=== PATIENT | male | born 1985 | race Caucasian/White ===

== ENCOUNTER 2018-08-30 07:18 | Inpatient (IN) | payer SELFPAY ==
[2018-08-30] MEDS ORDERED: CEFAZOLIN 2 GM/50 ML BAG ONE (08:02)
[2018-08-30] MEDS ORDERED: Fentanyl 250 MCG/5 ML VIAL ONE (08:06)
[2018-08-30] MEDS ORDERED: Norepinephrine 8 MG/0.9% NS 250 ML ONE ×2 (08:06→08:07)
[2018-08-30] MEDS ORDERED: Midazolam HCl 2 mg/2 ml Vial ONE (08:06)
[2018-08-30] MEDS ORDERED: Heparin 10,000 UNITS/1 ML VIAL 30,000 UNITS in Sodium Chloride 0.9% 1,000 ML FS SCH ×2 (08:15→14:45)
[2018-08-30] MEDS ORDERED: Sodium Bicarb 50 MEQ/50 ML Abboject 8.4% SYRINGE ONE ×3 (08:42→15:08)
[2018-08-30] MEDS ORDERED: Sodium Bicarbonate 2.5 MEQ/5 ML VIAL ONE (08:42)
[2018-08-30] MEDS ORDERED: Insulin Regular 300 UNITS/3 ML VIAL ONE (08:50)
[2018-08-30 09:15] LABS: Hemoglobin 8.1 g/dL (14.0-18.0); Mean Corpuscular HGB CONC 32.2 g/dL (32.0-36.0); Mean Corpuscular Hemoglobin 29.8 pg (27.0-31.0); Mean Corpuscular Volume 92.5 fL (78.0-98.0); Mean Platelet Volume 8.2 fL (7.4-10.4); Platelet Count 101 thou/uL (130-400); Red Blood Cell (RBC) Count 2.71 mill/uL (4.70-6.10); White Blood Cell (WBC) Count 22.7 thou/uL (4.8-10.8)
[2018-08-30 09:20] LABS: INR-International Normal Ratio 2.2; Prothrombin Time 24.9 SEC (12.0-14.7)
[2018-08-30 09:27] LABS: Fibrinogen 93 mg/dL (253-463); PTT 127.7 SEC (22.9-36.1)
[2018-08-30 09:37] LABS: D-Dimer Test Greater than 20.00 *mcg/mL (0.27-0.43)
[2018-08-30 09:40] LABS: Band 28 % (5-11); Eosinophils 2 % (0-10); Lymphocytes 21 % (21-51); MDiff Complete? YES; Metamyelocyte 5 % (0-0); Monocytes 2 % (0-10); Myelocyte 3 % (0-0); Neutrophil 38 % (42-75); PLT Morphology Comment Appears Decreased; Reactive Lymphocytes 1 % (0-10)
[2018-08-30] MEDS ORDERED: Hydrocortisone Sod Succ/PF 100 mg/2 ml Vial IVP SCH (10:15)
[2018-08-30] MEDS ORDERED: Calcium Chloride 1 GM/10 ML Abboject SYRINGE IVP SCH ×2 (10:15→11:00)
[2018-08-30 10:31] LABS: Actual Bicarbonate (HCO3a) 21.7 mEq/L (22-28); Base Excess (BEa) -8.1 mEq/L (-2.0 to +3.0); Calcium, Ionized 1.08 mmol/L (1.12-1.30); Carboxyhemoglobin (COHb) 0.6 gm% (0.0-3.0); Hemoglobin (Hb) 9.3 g/dL (14.0-18.0); Potassium - ABG Lab 2.48 mmol/L (3.70-5.30)
[2018-08-30 10:33] LABS: CO2 Tension 70.8 mmHg (35.0-45.0); O2 Tension (PaO2) 57.3 mmHg (80.0-100.0); pH, Arterial 7.11 (7.35-7.45)
[2018-08-30 10:34] LABS: Puncture Site ALINE
[2018-08-30 10:40] LABS: Actual Bicarbonate (HCO3a) 25.6 mEq/L (22-28); Base Excess (BEa) -2.6 mEq/L (-2.0 to +3.0); Calcium, Ionized 0.81 mmol/L (1.12-1.30); Carboxyhemoglobin (COHb) 1.8 gm% (0.0-3.0); Hemoglobin (Hb) 6.1 g/dL (14.0-18.0); Potassium - ABG Lab 2.71 mmol/L (3.70-5.30)
[2018-08-30] MEDS ORDERED: Calcium Chloride 1 GM/10 ML Abboject SYRINGE ONE ×4 (10:41→15:08)
[2018-08-30] MEDS ORDERED: Potassium Chloride 40 MEQ/100 ML PREMIX BAG ONE (10:42)
[2018-08-30 10:43] LABS: CO2 Tension 70.4 mmHg (35.0-45.0); O2 Tension (PaO2) 56.2 mmHg (80.0-100.0); Puncture Site LRA; pH, Arterial 7.18 (7.35-7.45)
[2018-08-30] MEDS ORDERED: Potassium Chloride 40 MEQ in Premix Bag 1 BAG IVPB SCH (11:00)
[2018-08-30 11:52] LABS: Hemoglobin (Hb) 4.4 g/dL (13.2-17.3)
[2018-08-30 11:56] LABS: Hemoglobin (Hb) 3.7 g/dL (13.2-17.3)
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
[2018-08-30 13:34] LABS: Actual Bicarbonate (HCO3a) 31.3 mEq/L (22-28); Base Excess (BEa) 4.9 mEq/L (-2.0 to +3.0); Calcium, Ionized 1.26 mmol/L (1.12-1.30); Carboxyhemoglobin (COHb) 0.4 gm% (0.0-3.0); Hemoglobin (Hb) 9.9 g/dL (14.0-18.0); Potassium - ABG Lab 2.29 mmol/L (3.70-5.30); pH, Arterial 7.37 (7.35-7.45)
[2018-08-30 13:36] LABS: O2 Tension (PaO2) 57.4 mmHg (80.0-100.0); Puncture Site ALINE
[2018-08-30 13:45] LABS: Hemoglobin 9.7 g/dL (14.0-18.0); Mean Corpuscular HGB CONC 34.4 g/dL (32.0-36.0); Mean Corpuscular Hemoglobin 30.3 pg (27.0-31.0); Mean Platelet Volume 6.8 fL (7.4-10.4); Platelet Count 66 thou/uL (130-400); RBC Distribution Width 12.2 % (11.5-14.5); White Blood Cell (WBC) Count 2.6 thou/uL (4.8-10.8)
[2018-08-30 13:46] LABS: #Lymphocytes 0.4 thou/uL (1.20-3.40); #Monocytes 0.1 thou/uL (0.11-0.59); #Neutrophils 2.1 thou/uL (1.40-6.50); %Basophils 0.9 % (0.0-1.0); %Eosinophils 1.2 % (0.0-10.0); %Neutrophils 78.8 % (42.0-75.0)
[2018-08-30] MEDS ORDERED: Heparin 30,000 units/30 ml VIAL ONE (13:55)
[2018-08-30] MEDS ORDERED: Albumin 25% 25 GM/100 ML BOT ONE (13:55)
[2018-08-30] MEDS ORDERED: Vecuronium 10 MG VIAL ONE (13:55)
[2018-08-30] MEDS ORDERED: Sodium Bicarb 50 MEQ/50 ML VIAL ONE ×2 (13:55→13:56)
[2018-08-30 14:00] LABS: MDiff Complete? YES; PLT Morphology Comment Appears Decreased; Polychromasia SLIGHT = 2-3 cells (100X) (0-2/hpf)
[2018-08-30 14:03] LABS: ALT (SGPT) 143 U/L (8-55); AST (SGOT) 171 U/L (5-34); Albumin 2.7 g/dL (3.5-5.0); Alkaline Phosphatase 54 U/L (40-150); Anion Gap 15 mmol/L (10-20); BUN (Urea Nitrogen) 16 mg/dL (8.9-20.6); Bilirubin, Total 0.6 mg/dL (0.2-1.2); Calc. Creatinine Clearance 87 mL/min (70-130); Calcium 10.7 mg/dL (7.8-10.44); Carbon Dioxide 30 mmol/L (22-29); Chloride 110 mmol/L (98-107); Estimated GFR-MDRD 57; Globulin 1.7 g/dL (2.4-3.5); Glucose 154 mg/dL (70-105); Protein, Total 4.4 g/dL (6.0-8.3); Sodium 153 mmol/L (136-145)
[2018-08-30 14:04] LABS: Lactic Acid 9.6 mmol/L (0.5-2.2)
[2018-08-30 14:09] LABS: Potassium 2.4 mmol/L (3.5-5.1)
[2018-08-30 14:43] LABS: Fibrinogen 262 mg/dL (253-463); INR-International Normal Ratio 1.3; Prothrombin Time 16.5 SEC (12.0-14.7)
[2018-08-30 14:44] LABS: PTT 37.4 SEC (22.9-36.1)
[2018-08-30 14:57] LABS: D-Dimer Test 14.57 *mcg/mL (0.27-0.43)
[2018-08-30] MEDS ORDERED: Adenosine 6 MG/2 ML VIAL ONE (15:05)
[2018-08-30] MEDS ORDERED: Fentanyl 100 MCG/2 ML VIAL ONE (15:07)
[2018-08-30] MEDS ORDERED: EPINEPHrine 1 MG/10 ML Abboject SYRINGE ONE (15:08)
[2018-08-30 15:11] LABS: FSP-Qualitative ABNORMAL (Normal)
[2018-08-30] MEDS ORDERED: Fentanyl 100 MCG/2 ML VIAL SLOW IVP SCH (15:12)
[2018-08-30 15:13] LABS: Platelet Count 96 thou/uL (130-400)
[2018-08-30 15:16] LABS: FSP-Semiquantitative >=160 & <320 mcg/mL (Less than 5)
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
[2018-08-30] MEDS: Potassium Chloride 40 MEQ in Premix Bag 1 BAG IVPB SCH ×2 (16:18→18:28)
[2018-08-30] MEDS ORDERED: Propofol BOLUS 1,000 MG/100 ML VIAL IV PRN (16:44)
[2018-08-30] MEDS ORDERED: Fentanyl BOLUS 250 ML IVPB PRN (16:44)
[2018-08-30] MEDS ORDERED: Morphine 2 MG/ML SYRINGE SLOW IVP PRN (16:44)
[2018-08-30] MEDS ORDERED: DISCONTINUE PREVIOUS NARCOTIC PAIN MEDICATIONS AND BENZODIAZEPINES FS SCH (16:44)
[2018-08-30 17:11] LABS: Actual Bicarbonate (HCO3a) 26.5 mEq/L (22-28); Base Excess (BEa) 1.7 mEq/L (-2.0 to +3.0); CO2 Tension 42.5 mmHg (35.0-45.0); Calcium, Ionized 1.32 mmol/L (1.12-1.30); Carboxyhemoglobin (COHb) 0.3 gm% (0.0-3.0); Hemoglobin (Hb) 9.5 g/dL (14.0-18.0); O2 Tension (PaO2) 193.8 mmHg (80.0-100.0); pH, Arterial 7.41 (7.35-7.45)
[2018-08-30 17:13] LABS: ALV-art Gradient 466.075 (0-20); Puncture Site LINE
[2018-08-30] MEDS ORDERED: SYSTANE 3.5 GM TUBE EA EYE PRN (17:29)
[2018-08-30] MEDS ORDERED: Dextrose 5% in Water 1,000 ML IV SCH (17:30)
[2018-08-30] MEDS: Lorazepam 2 MG/ML VIAL SLOW IVP PRN ×3 (17:57→20:30)
[2018-08-30] MEDS ORDERED: Dextrose 50% Abboject 50 ML SYRINGE ONE ×4 (18:02→19:53)
[2018-08-30] MEDS: Piperacillin/Tazobactam 3.375 GM in Sodium Chloride 0.9% 100 ML IVPB SCH ×2 (18:29→23:43)
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
[2018-08-30] MEDS: fentaNYL Citrate/PF 2,000 MCG in Sodium Chloride 0.9% 60 ML IV SCH (19:38)
[2018-08-30] MEDS: Famotidine/PF 20 mg/2ml Vial SLOW IVP SCH (21:59)
[2018-08-30] MEDS: Vancomycin HCl 1.5 GM in Sodium Chloride 0.9% 250 ML 300 ML IVPB SCH (21:59)
[2018-08-30] MEDS ORDERED: Dextrose 50% Abboject 50 ML SYRINGE SLOW IVP PRN (23:22)
[2018-08-30] MEDS ORDERED: Dextrose 5% in Water 1,000 ML IV PRN (23:22)
[2018-08-30] MEDS ORDERED: hydrALAZINE 20 MG/ML VIAL SLOW IVP PRN (23:22)
[2018-08-30] MEDS ORDERED: Fluconazole In NaCl,Iso-Osm 400 MG in Premix Bag 1 BAG IVPB SCH (23:30)
[2018-08-30] MEDS ORDERED: Sodium Chloride 0.9% 1,000 ML IV SCH (23:30)
[2018-08-30] MEDS: Dextrose 10% in Water 1,000 ML IV SCH (23:40)
[2018-08-30] MEDS: Acetaminophen 1,000 MG in Premix Bag 1 BAG IVPB SCH (23:43)
[2018-08-30] MEDS: Hydrocortisone Sod Succ/PF 100 mg/2 ml Vial IVP SCH (23:44)
[2018-08-31 00:19] LABS: Fibrinogen 297 mg/dL (253-463); INR-International Normal Ratio 1.5; PTT 33.2 SEC (22.9-36.1)
[2018-08-31] MEDS: Lorazepam 2 MG/ML VIAL SLOW IVP PRN (00:20)
[2018-08-31 00:27] LABS: D-Dimer Test 17.62 *mcg/mL (0.27-0.43)
[2018-08-31] MEDS: Propofol 1,000 MG/100 ML VIAL IV PRN ×3 (00:28→21:12)
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
[2018-08-31 01:03] LABS: FSP-Qualitative ABNORMAL (Normal); FSP-Semiquantitative >=80 & <160 mcg/mL (Less than 5)
[2018-08-31 01:06] LABS: Platelet Count 110 thou/uL (130-400)
[2018-08-31 01:31] LABS: Band 33 % (5-11); Hemoglobin 9.5 g/dL (14.0-18.0); Hypochromia SLIGHT = 6-15 cells (100X) (0-5/hpf); Lymphocytes 24 % (21-51); MDiff Complete? YES; Mean Corpuscular HGB CONC 35.1 g/dL (32.0-36.0); Mean Corpuscular Hemoglobin 30.4 pg (27.0-31.0); Mean Corpuscular Volume 86.9 fL (78.0-98.0); Mean Platelet Volume 8.9 fL (7.4-10.4); Monocytes 5 % (0-10); Neutrophil 35 % (42-75); PLT Morphology Comment Appears Decreased; Phosphorus 3.4 mg/dL (2.3-4.7); Platelet Count 111 thou/uL (130-400); Polychromasia SLIGHT = 2-3 cells (100X) (0-2/hpf); Reactive Lymphocytes 3 % (0-10); Red Blood Cell (RBC) Count 3.12 mill/uL (4.70-6.10); White Blood Cell (WBC) Count 9.7 thou/uL (4.8-10.8)
[2018-08-31 01:33] LABS: Lactic Acid 5.2 mmol/L (0.5-2.2)
[2018-08-31 01:35] LABS: ALT (SGPT) 152 U/L (8-55); AST (SGOT) 528 U/L (5-34); Alkaline Phosphatase 39 U/L (40-150); Anion Gap 17 mmol/L (10-20); BUN (Urea Nitrogen) 23 mg/dL (8.9-20.6); Bilirubin, Total 1.1 mg/dL (0.2-1.2); Calc. Creatinine Clearance 54 mL/min (70-130); Calcium 9.8 mg/dL (7.8-10.44); Carbon Dioxide 26 mmol/L (22-29); Chloride 112 mmol/L (98-107); Estimated GFR-MDRD 33; Globulin 2.1 g/dL (2.4-3.5); Glucose 104 mg/dL (70-105); Potassium 4.7 mmol/L (3.5-5.1); Protein, Total 5.1 g/dL (6.0-8.3); Sodium 150 mmol/L (136-145)
--- NOTE | 2018-08-31 01:49 | OP ---
DATE OF PROCEDURE: 08/30/2018 PREOPERATIVE DIAGNOSIS: Hemoperitoneum. POSTOPERATIVE DIAGNOSES: Injury, open, liver; injury, open, greater curve of stomach as well as projectile injury to spleen. PROCEDURES PERFORMED: 1. Exploratory laparotomy. 2. Hepatorrhaphy. 3. Repair of gastric projectile injury. 4. Splenectomy. 5. Abdominal washout. 6. Placement of ABThera. ANESTHESIA: General. ESTIMATED BLOOD LOSS: Massive in terms of blood on presentation. No significant blood loss after control of old blood in abdomen. DESCRIPTION OF PROCEDURE: The patient was taken from the ICU to the OR in critical condition. His abdomen was shaved, prepped, and draped. A midline incision was made from xiphoid to pubis. Upon entering the peritoneum, was performed. Anesthesia was providing ongoing resuscitation utilizing the massive transfusion protocol and the patient was on Levophed throughout the procedure. Removal of the packs in the lower abdomen revealed no obvious injury. There were obvious gastric contents in the upper abdomen upon entrance. The falciform was taken down using the Impact LigaSure. The patient was found to have a psykkwa-ggt-pniyghq injury to the left lobe of liver. The patient was found to have an open injury to the greater curve of stomach. The patient was found to have a projectile injury to upper spleen. The spleen was grasped around its hilum and brought up into the field. A clamp was placed across the hilum and a silk suture was used to ligate the hilum. There was no bleeding then in the left upper quadrant. The projectile entered the retroperitoneum behind the spleen, but this was packed off with no significant ongoing bleeding. The LigaSure was used to control bleeding on the edges of the liver laceration, but this was not much. The lesser sac was opened using LigaSure, revealed no obvious injury to the posterior wall of the stomach. There was an open injury to the greater curve. This was grasped using [place] and laparoscopic CLINT stapler was used to close it. Small bowel was run from ligament of Treitz to ileocecal valve without injury. The colon was marked without injury. No injury to the pancreas. Surgicel was packed in the posterior retroperitoneal tunnel, but there was really no significant ongoing bleeding in this area. All instrument counts, needle counts, and lap counts were correct. There was no obvious ongoing extravasation or injury in the abdomen. Five packs were left in the upper abdomen. The ABThera was placed. The patient was taken back to the ICU for continued resuscitation. Job ID: [id number]
[2018-08-31 01:55] LABS: Actual Bicarbonate (HCO3a) 26.9 mEq/L (22-28); Base Excess (BEa) 1.3 mEq/L (-2.0 to +3.0); Calcium, Ionized 1.19 mmol/L (1.12-1.30); Carboxyhemoglobin (COHb) 0.9 gm% (0.0-3.0); Hemoglobin (Hb) 9.1 g/dL (14.0-18.0); O2 Tension (PaO2) 43.2 mmHg (80.0-100.0); Potassium - ABG Lab 4.09 mmol/L (3.70-5.30); pH, Arterial 7.37 (7.35-7.45)
[2018-08-31 01:56] LABS: Puncture Site ALINE
[2018-08-31] MEDS: Norepinephrine 8 MG/250 ML BAG IVPB PRN ×3 (03:04→15:18)
--- NOTE | 2018-08-31 03:56 | OP ---
DATE OF PROCEDURE: 08/30/2018 SERVICE: Pulmonary Medicine. PROCEDURE PERFORMED: Ultrasound-guided paracentesis. The consent was implied secondary to emergent situation. PREOPERATIVE DIAGNOSES: 1. Hemorrhagic shock. 2. Abdominal swelling. POSTPROCEDURE DIAGNOSES: 1. Hemorrhagic shock. 2. Abdominal swelling. DESCRIPTION OF PROCEDURE: Time-out was performed by the procedure team. The patient was positively identified. Procedure site was marked. In the supine position, the right lower quadrant was examined using ultrasound probe. A large pocket of fluid was easily identified. A small incision was made with a #11 blade scalpel. A paracentesis catheter was inserted in the exact same location with evacuation of bloody fluid. The catheter was hooked up to a drainage bag by gravity. It was left hooked up. Because the tap was diagnostic for blood in the abdomen, preparations were made to transition the patient to the operating room for a laparotomy. ESTIMATED BLOOD LOSS: Less than 2 mL from this procedure. COMPLICATIONS: None. Job ID: [id number]
[2018-08-31] MEDS: Acetaminophen 1,000 MG in Premix Bag 1 BAG IVPB SCH ×3 (05:23→18:20)
[2018-08-31] MEDS: Hydrocortisone Sod Succ/PF 100 mg/2 ml Vial IVP SCH ×3 (05:23→18:20)
[2018-08-31] MEDS: Piperacillin/Tazobactam 3.375 GM in Sodium Chloride 0.9% 100 ML IVPB SCH ×3 (05:24→18:20)
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
[2018-08-31] MEDS ORDERED: Lactated Ringer's 1,000 ML IV SCH ×2 (06:15→09:07)
[2018-08-31 06:40] LABS: Actual Bicarbonate (HCO3a) 26.4 mEq/L (22-28); Base Excess (BEa) 0.5 mEq/L (-2.0 to +3.0); CO2 Tension 49.4 mmHg (35.0-45.0); Carboxyhemoglobin (COHb) 1.1 gm% (0.0-3.0); Hemoglobin (Hb) 8.4 g/dL (14.0-18.0); Potassium - ABG Lab 5.37 mmol/L (3.70-5.30); pH, Arterial 7.35 (7.35-7.45)
[2018-08-31 06:41] LABS: O2 Tension (PaO2) 54.6 mmHg (80.0-100.0)
[2018-08-31 06:42] LABS: Puncture Site ALINE
[2018-08-31 07:56] LABS: Actual Bicarbonate (HCO3a) 8.7 mEq/L (22-28); Analyzer IN Cardio OR; Base Excess (BEa) -27.7 mEq/L (-2.0 to +3.0); Calcium, Ionized 0.98 mmol/L (1.12-1.30); Carboxyhemoglobin (COHb) 0.3 gm% (0.0-3.0); Hemoglobin (Hb) 9.8 g/dL (14.0-18.0); O2 Tension (PaO2) 116.3 mmHg (80.0-100.0); Potassium - ABG Lab 3.38 mmol/L (3.70-5.30)
[2018-08-31 07:57] LABS: Actual Bicarbonate (HCO3a) 16.6 mEq/L (22-28); Analyzer IN Cardio OR; Base Excess (BEa) -9.9 mEq/L (-2.0 to +3.0); CO2 Tension 38.8 mmHg (35.0-45.0); Calcium, Ionized 0.91 mmol/L (1.12-1.30); Carboxyhemoglobin (COHb) 0.5 gm% (0.0-3.0); Hemoglobin (Hb) 7.8 g/dL (14.0-18.0); O2 Tension (PaO2) 142.3 mmHg (80.0-100.0); Potassium - ABG Lab 4.05 mmol/L (3.70-5.30)
[2018-08-31 07:57] LABS: Actual Bicarbonate (HCO3a) 15.1 mEq/L (22-28); Analyzer IN Cardio OR; Base Excess (BEa) -14.1 mEq/L (-2.0 to +3.0); CO2 Tension 50.9 mmHg (35.0-45.0); Calcium, Ionized 0.83 mmol/L (1.12-1.30); Carboxyhemoglobin (COHb) 0.5 gm% (0.0-3.0); Hemoglobin (Hb) 8.8 g/dL (14.0-18.0); O2 Tension (PaO2) 145.6 mmHg (80.0-100.0); Potassium - ABG Lab 4.19 mmol/L (3.70-5.30)
[2018-08-31 08:03] LABS: Actual Bicarbonate (HCO3a) 20.6 mEq/L (22-28); Analyzer IN Cardio OR; Base Excess (BEa) -5.2 mEq/L (-2.0 to +3.0); CO2 Tension 42.3 mmHg (35.0-45.0); Calcium, Ionized 0.91 mmol/L (1.12-1.30); Carboxyhemoglobin (COHb) 1.3 gm% (0.0-3.0); Hemoglobin (Hb) 5.9 g/dL (14.0-18.0); O2 Tension (PaO2) 68.1 mmHg (80.0-100.0); Potassium - ABG Lab 2.09 mmol/L (3.70-5.30); pH, Arterial 7.31 (7.35-7.45)
[2018-08-31 08:03] LABS: Actual Bicarbonate (HCO3v) 23 mEq/L (22-28); Analyzer IN Cardio OR; Calcium, Ionized 0.88 mmol/L (1.16-1.32); Chloride (ABG LAB) 115 mmol/L (98-106); Hemoglobin (Hb) 6.5 g/dL (13.2-17.3); Potassium - ABG Lab 2.05 mmol/L (3.70-5.30); Sodium 149.9 mmol/L (133-146); pH (venous) 7.29 (7.32-7.43)
[2018-08-31 08:10] LABS: Puncture Site ALINE
[2018-08-31 08:13] LABS: CO2 Tension 78.6 mmHg (35.0-45.0); pH, Arterial 6.66 (7.35-7.45)
[2018-08-31 08:14] LABS: Puncture Site ALINE
[2018-08-31 08:15] LABS: Puncture Site ALINE; pH, Arterial 7.09 (7.35-7.45)
[2018-08-31 08:16] LABS: Puncture Site ALINE; pH, Arterial 7.25 (7.35-7.45)
[2018-08-31 08:19] LABS: Actual Bicarbonate (HCO3a) 20.3 mEq/L (22-28); Analyzer IN Cardio OR; Base Excess (BEa) -4.3 mEq/L (-2.0 to +3.0); CO2 Tension 35.7 mmHg (35.0-45.0); Calcium, Ionized 1.06 mmol/L (1.12-1.30); Carboxyhemoglobin (COHb) 0.2 gm% (0.0-3.0); Hemoglobin (Hb) 12.4 g/dL (14.0-18.0); O2 Tension (PaO2) 340.6 mmHg (80.0-100.0); Potassium - ABG Lab 3.52 mmol/L (3.70-5.30); pH, Arterial 7.37 (7.35-7.45)
[2018-08-31 08:20] LABS: Puncture Site ALINE
[2018-08-31] MEDS ORDERED: Magnesium Sulfate 3 GM in Sodium Chloride 0.9% 100 ML IVPB SCH (08:45)
[2018-08-31] MEDS ORDERED: Calcium Gluconate 4.6 MEQ in Sodium Chloride 0.9% 100 ML IVPB SCH (09:04)
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
[2018-08-31 09:47] LABS: Vancomycin, Random 20.5 ug/mL (See Comment)
[2018-08-31] MEDS ORDERED: Budesonide 0.5 MG/2 ML NEB ONE (10:26)
[2018-08-31] MEDS: Famotidine/PF 20 mg/2ml Vial SLOW IVP SCH ×2 (10:28→21:11)
[2018-08-31] MEDS: Vancomycin HCl 1.5 GM in Sodium Chloride 0.9% 250 ML 300 ML IVPB SCH (10:28)
[2018-08-31] MEDS: Fluconazole In NaCl,Iso-Osm 400 MG in Premix Bag 1 BAG IVPB SCH (10:29)
[2018-08-31] MEDS: fentaNYL Citrate/PF 2,000 MCG in Sodium Chloride 0.9% 60 ML IV SCH (10:38)
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
[2018-08-31] MEDS: Dextrose 10% in Water 1,000 ML IV SCH ×2 (13:33→21:12)
[2018-08-31] MEDS: Norepinephrine 16 MG in Dextrose 5% in Water 234 ML IVPB PRN (21:12)
[2018-09-01] MEDS: Hydrocortisone Sod Succ/PF 100 mg/2 ml Vial IVP SCH ×5 (00:07→23:23)
[2018-09-01] MEDS: Acetaminophen 1,000 MG in Premix Bag 1 BAG IVPB SCH (00:07)
[2018-09-01] MEDS: Piperacillin/Tazobactam 3.375 GM in Sodium Chloride 0.9% 100 ML IVPB SCH ×5 (00:07→23:23)
[2018-09-01] MEDS ORDERED: Norepinephrine 8 MG/0.9% NS 0 ML ONE (03:28)
[2018-09-01] MEDS: Propofol 1,000 MG/100 ML VIAL IV PRN ×2 (05:09→19:36)
[2018-09-01 05:34] LABS: Band 39 % (5-11); Hemoglobin 8.1 g/dL (14.0-18.0); Lymphocytes 7 % (21-51); MDiff Complete? YES; Mean Corpuscular HGB CONC 34.4 g/dL (32.0-36.0); Mean Corpuscular Hemoglobin 30.4 pg (27.0-31.0); Mean Corpuscular Volume 88.4 fL (78.0-98.0); Monocytes 5 % (0-10); Neutrophil 49 % (42-75); PLT Morphology Comment Appears Decreased; Platelet Count 97 thou/uL (130-400); RBC Distribution Width 13.4 % (11.5-14.5); Red Blood Cell (RBC) Count 2.66 mill/uL (4.70-6.10); White Blood Cell (WBC) Count 16.5 thou/uL (4.8-10.8)
[2018-09-01 05:41] LABS: Phosphorus 4.3 mg/dL (2.3-4.7)
[2018-09-01 05:51] LABS: ALT (SGPT) 268 U/L (8-55); AST (SGOT) 469 U/L (5-34); Albumin 3.1 g/dL (3.5-5.0); Alkaline Phosphatase 38 U/L (40-150); Anion Gap 16 mmol/L (10-20); BUN (Urea Nitrogen) 25 mg/dL (8.9-20.6); Bilirubin, Total 2.2 mg/dL (0.2-1.2); Calc. Creatinine Clearance 44 mL/min (70-130); Calcium 8.1 mg/dL (7.8-10.44); Carbon Dioxide 24 mmol/L (22-29); Chloride 110 mmol/L (98-107); Estimated GFR-MDRD 26; Globulin 2.2 g/dL (2.4-3.5); Glucose 166 mg/dL (70-105); Magnesium 1.6 mg/dL (1.6-2.6); Potassium 3.9 mmol/L (3.5-5.1); Protein, Total 5.3 g/dL (6.0-8.3); Sodium 146 mmol/L (136-145)
[2018-09-01] MEDS: Famotidine/PF 20 mg/2ml Vial SLOW IVP SCH ×2 (08:39→20:39)
[2018-09-01] MEDS ORDERED: Magnesium Sulfate 4 GM in Sodium Chloride 0.9% 250 ML 250 ML IVPB SCH (09:00)
[2018-09-01 09:11] LABS: Actual Bicarbonate (HCO3a) 25.1 mEq/L (22-28); Base Excess (BEa) -0.5 mEq/L (-2.0 to +3.0); CO2 Tension 45.7 mmHg (35.0-45.0); Calcium, Ionized 1.04 mmol/L (1.12-1.30); Carboxyhemoglobin (COHb) 0.5 gm% (0.0-3.0); Hemoglobin (Hb) 8.3 g/dL (14.0-18.0); O2 Tension (PaO2) 80.3 mmHg (80.0-100.0); Potassium - ABG Lab 4.08 mmol/L (3.70-5.30); pH, Arterial 7.36 (7.35-7.45)
[2018-09-01 09:12] LABS: ALV-art Gradient 197.685 (0-20); Peep/CPAP 7.5 cmH2O; Puncture Site ALINE
--- NOTE | 2018-09-01 09:12 | RAD ---
PORTABLE AP CHEST: Date: 09/01/18 HISTORY: On ventilator. Follow-up evaluation. COMPARISON: 08/31/18. FINDINGS: Endotracheal tube and nasogastric tubes remain in place and unchanged in position. Two left-sided tho racostomy tubes with single right-sided thoracostomy tube also remain in place. Again noted is increa sed opacity at the left lung base, which may be related to contusion, pneumonia, or atelectasis. Pleu ral fluid at the left lung base could not be entirely excluded. Skin clips again overlie the lower le ft chest. The cardiac silhouette is enlarged. Pulmonary vasculature is within normal limits. Linear d ensities in the left upper lung zone are likely related to atelectasis. However, there does appear to be mild improvement in aeration in the left upper lung zone compared to prior study. However, chest is overall stable compared to the prior exam. IMPRESSION: Overall stable chest with suggestion of mild improvement in aeration in the left upper lung zone. POS: [facility]
[2018-09-01] MEDS: Vancomycin HCl 1.5 GM in Sodium Chloride 0.9% 250 ML 300 ML IVPB SCH (09:22)
[2018-09-01] MEDS: Fluconazole In NaCl,Iso-Osm 400 MG in Premix Bag 1 BAG IVPB SCH (09:47)
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
[2018-09-01] MEDS ORDERED: Midazolam HCl 2 mg/2 ml Vial IVP SCH (13:30)
[2018-09-01] MEDS: Norepinephrine 16 MG in Dextrose 5% in Water 234 ML IVPB PRN (13:50)
[2018-09-01] MEDS: fentaNYL Citrate/PF 2,000 MCG in Sodium Chloride 0.9% 60 ML IV SCH (14:27)
[2018-09-01] MEDS ORDERED: Sodium Chloride 0.9% 20 ML ONE (16:03)
--- NOTE | 2018-09-01 18:51 | RAD ---
PORTABLE SUPINE CHEST: 09/01/18 HISTORY: Post line placement. COMPARISON: Earlier exam of the same day. A left sided subclavian line has now been placed. The catheter tip overlying the superior vena cava. I do not appreciate a pneumothorax on this supine film. No other interval change. IMPRESSION: Placement of left sided subclavian line. Catheter tip overlying the superior vena cava. POS: [facility]
[2018-09-01] MEDS: Dextrose 10% in Water 1,000 ML IV SCH (19:58)
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
[2018-09-02 04:51] LABS: ALT (SGPT) 281 U/L (8-55); AST (SGOT) 379 U/L (5-34); Alkaline Phosphatase 52 U/L (40-150); Anion Gap 12 mmol/L (10-20); BUN (Urea Nitrogen) 25 mg/dL (8.9-20.6); Bilirubin, Total 1.3 mg/dL (0.2-1.2); Calc. Creatinine Clearance 65 mL/min (70-130); Calcium 8.3 mg/dL (7.8-10.44); Carbon Dioxide 26 mmol/L (22-29); Chloride 112 mmol/L (98-107); Estimated GFR-MDRD 37; Globulin 2.6 g/dL (2.4-3.5); Glucose 135 mg/dL (70-105); Magnesium 2.1 mg/dL (1.6-2.6); Potassium 4.4 mmol/L (3.5-5.1); Protein, Total 5.6 g/dL (6.0-8.3); Sodium 146 mmol/L (136-145)
[2018-09-02 05:05] LABS: Band 33 % (5-11); Dohle Bodies SLIGHT; Eosinophils 1 % (0-10); Hemoglobin 7.9 g/dL (14.0-18.0); Lymphocytes 6 % (21-51); MDiff Complete? YES; Mean Corpuscular HGB CONC 34.2 g/dL (32.0-36.0); Mean Corpuscular Hemoglobin 31.1 pg (27.0-31.0); Mean Corpuscular Volume 90.9 fL (78.0-98.0); Monocytes 3 % (0-10); Neutrophil 57 % (42-75); PLT Morphology Comment Appears Decreased; Platelet Count 110 thou/uL (130-400); RBC Distribution Width 13.6 % (11.5-14.5); Red Blood Cell (RBC) Count 2.54 mill/uL (4.70-6.10); Toxic Granulation SLIGHT; White Blood Cell (WBC) Count 17.3 thou/uL (4.8-10.8)
[2018-09-02] MEDS: Hydrocortisone Sod Succ/PF 100 mg/2 ml Vial IVP SCH ×3 (05:24→17:32)
[2018-09-02] MEDS: Piperacillin/Tazobactam 3.375 GM in Sodium Chloride 0.9% 100 ML IVPB SCH ×3 (05:24→17:33)
[2018-09-02] MEDS: Propofol 1,000 MG/100 ML VIAL IV PRN ×2 (05:44→08:23)
[2018-09-02] MEDS: Fluconazole In NaCl,Iso-Osm 400 MG in Premix Bag 1 BAG IVPB SCH (08:16)
[2018-09-02] MEDS: Famotidine/PF 20 mg/2ml Vial SLOW IVP SCH ×2 (08:16→22:09)
[2018-09-02 08:44] LABS: Vancomycin, Trough 12.3 ug/mL
[2018-09-02] MEDS ORDERED: Acetaminophen 650 MG in Premix Bag 1 BAG IVPB PRN ×2 (09:02→09:03)
[2018-09-02] MEDS: Dextrose 5% in Water 1,000 ML IV SCH ×2 (09:52→22:14)
[2018-09-02] MEDS ORDERED: Budesonide 0.5 MG/2 ML NEB ONE (09:57)
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
[2018-09-02] MEDS: Vancomycin HCl 1.5 GM in Sodium Chloride 0.9% 250 ML 300 ML IVPB SCH (10:35)
[2018-09-02] MEDS: fentaNYL Citrate/PF 2,000 MCG in Sodium Chloride 0.9% 60 ML IV SCH (18:13)
[2018-09-02] MEDS: Vancomycin HCl 1 GM in Premix Bag 1 BAG IVPB SCH (22:09)
[2018-09-03] MEDS: Hydrocortisone Sod Succ/PF 100 mg/2 ml Vial IVP SCH ×5 (00:33→23:58)
[2018-09-03] MEDS: Propofol 1,000 MG/100 ML VIAL IV PRN ×2 (00:33→17:19)
[2018-09-03] MEDS: Piperacillin/Tazobactam 3.375 GM in Sodium Chloride 0.9% 100 ML IVPB SCH ×5 (00:33→23:57)
[2018-09-03 04:41] LABS: Anion Gap 10 mmol/L (10-20); BUN (Urea Nitrogen) 23 mg/dL (8.9-20.6); Calc. Creatinine Clearance 87 mL/min (70-130); Calcium 8.2 mg/dL (7.8-10.44); Carbon Dioxide 28 mmol/L (22-29); Chloride 112 mmol/L (98-107); Estimated GFR-MDRD 55; Glucose 128 mg/dL (70-105); Potassium 3.8 mmol/L (3.5-5.1); Sodium 146 mmol/L (136-145)
[2018-09-03 05:02] LABS: Band 32 % (5-11); Eosinophils 1 % (0-10); Hemoglobin 7.5 g/dL (14.0-18.0); Lymphocytes 7 % (21-51); MDiff Complete? YES; Mean Corpuscular HGB CONC 33.4 g/dL (32.0-36.0); Mean Corpuscular Hemoglobin 30.7 pg (27.0-31.0); Mean Platelet Volume 9.6 fL (7.4-10.4); Monocytes 5 % (0-10); Neutrophil 55 % (42-75); Platelet Count 135 thou/uL (130-400); RBC Distribution Width 13.4 % (11.5-14.5); Red Blood Cell (RBC) Count 2.44 mill/uL (4.70-6.10); White Blood Cell (WBC) Count 23.5 thou/uL (4.8-10.8)
[2018-09-03] MEDS: Famotidine/PF 20 mg/2ml Vial SLOW IVP SCH ×2 (08:48→21:20)
[2018-09-03] MEDS: Vancomycin HCl 1 GM in Premix Bag 1 BAG IVPB SCH ×2 (08:48→21:22)
[2018-09-03] MEDS: Fluconazole In NaCl,Iso-Osm 400 MG in Premix Bag 1 BAG IVPB SCH (08:48)
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
[2018-09-03] MEDS: Dextrose 5% in Water 1,000 ML IV SCH (10:59)
[2018-09-03] MEDS ORDERED: PHENYLEPHRINE-NS 100 MCG/ML 10 ML SYRINGE ONE (12:56)
[2018-09-03] MEDS ORDERED: ePHEDrine/0.9% NaCl/PF SYRINGE 50 mg/10 ml ONE (12:56)
--- NOTE | 2018-09-03 13:06 | PRG ---
DATE OF SERVICE: 09/03/2018 SERVICE: Pulmonary Medicine. INTERVAL HISTORY: The patient is doing really well from respiratory standpoint. We have been able to wean his oxygen down a little bit further. He did not have any events overnight and actually came off his Levophed. He denies any chest pain, fevers, chills, nausea, or vomiting. Otherwise, there were no other significant events. PHYSICAL EXAMINATION: VITAL SIGNS: Currently, afebrile. He did have a T-max of 100.1 overnight. Pulse 95, blood pressure 130/64, respirations 10, and saturation 93% on 27% FiO2. GENERAL: The patient is intubated and sedated. HEENT: Normocephalic and atraumatic. Sclerae are white. Conjunctivae are pink. Oral mucosa is moist without lesions. LUNGS: Decent air entry. There is no prolonged expiratory phase. Dependent crackles are minimal. HEART: Normal rate and regular. ABDOMEN: Soft, nontender, and nondistended. Bowel sounds are positive. MUSCULOSKELETAL: No cyanosis or clubbing. There is no pitting in the bilateral lower extremities. NEUROLOGIC: Grossly nonfocal. LABORATORY FINDINGS: WBC 23.5, hemoglobin 7.5, platelets 135,000 and rebounding. Band count is stable at 32%. Creatinine 1.48 and downtrending. BUN 23. Chloride 112, sodium 146, both of which are stable. IMAGING STUDIES: Chest x-ray demonstrates stable thoracostomy tubes x2 on the left. There is a stable thoracostomy tube on the right. A small effusion on the left is noted. Left-sided subclavian central venous catheter is in good position. There is an endotracheal tube roughly 4 cm above the level of the broderick. Scattered infiltrates are present. ASSESSMENT: 1. Acute hypoxic respiratory failure, continuing to improve. 2. Pulseless electrical activity, status post return of circulation. 3. Hemorrhagic shock, resolved. 4. Acute blood loss anemia. 5. Metabolic encephalopathy. 6. Anoxic brain injury, possible. DISCUSSION AND PLAN: The patient may go down for another washout today. He will possibly be closed. If that occurs, we will be able to facilitate weaning from the ventilator and give the patient a good sedation holiday to see whether or not he has any good neurologic function left. I will start a dose of Lasix on a daily basis now that he is off pressors. We will continue our free water through time. CRITICAL CARE TIME: 30 minutes. Job ID: [id number]
[2018-09-03] MEDS ORDERED: Fentanyl 250 MCG/5 ML VIAL ONE (15:19)
[2018-09-03] MEDS ORDERED: Phenylephrine HCL 10 MG/ML VIAL ONE (15:20)
[2018-09-03] MEDS ORDERED: DOPamine 400 MG/D5W 250 ML 0 ML ONE (15:20)
[2018-09-03] MEDS ORDERED: Midazolam HCl 5 mg/5 ml Vial ONE (15:26)
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
[2018-09-03] MEDS: fentaNYL Citrate/PF 2,000 MCG in Sodium Chloride 0.9% 60 ML IV SCH (23:44)
[2018-09-04] MEDS: Piperacillin/Tazobactam 3.375 GM in Sodium Chloride 0.9% 100 ML IVPB SCH ×3 (04:53→17:30)
[2018-09-04] MEDS: Hydrocortisone Sod Succ/PF 100 mg/2 ml Vial IVP SCH ×2 (04:54→11:44)
[2018-09-04] MEDS: Dextrose 5% in Water 1,000 ML IV SCH ×2 (05:31→16:08)
[2018-09-04 05:37] LABS: Anion Gap 11 mmol/L (10-20); BUN (Urea Nitrogen) 23 mg/dL (8.9-20.6); Calc. Creatinine Clearance 84 mL/min (70-130); Calcium 8.1 mg/dL (7.8-10.44); Carbon Dioxide 26 mmol/L (22-29); Chloride 112 mmol/L (98-107); Estimated GFR-MDRD 54; Glucose 121 mg/dL (70-105); Sodium 146 mmol/L (136-145)
[2018-09-04] MEDS ORDERED: Furosemide 20 MG/2 ML VIAL SLOW IVP SCH (06:00)
[2018-09-04 06:28] LABS: Band 15 % (5-11); Eosinophils 2 % (0-10); Hemoglobin 7.6 g/dL (14.0-18.0); Large Platelets SLIGHT; Lymphocytes 8 % (21-51); MDiff Complete? YES; Mean Corpuscular HGB CONC 33.2 g/dL (32.0-36.0); Mean Corpuscular Hemoglobin 30.3 pg (27.0-31.0); Mean Corpuscular Volume 91.4 fL (78.0-98.0); Mean Platelet Volume 9.5 fL (7.4-10.4); Monocytes 10 % (0-10); Myelocyte 3 % (0-0); Neutrophil 62 % (42-75); Nucleated RBC 3 % (0); PLT Morphology Comment Appears Adequate; Platelet Count 189 thou/uL (130-400); Polychromasia SLIGHT = 2-3 cells (100X) (0-2/hpf); RBC Distribution Width 13.3 % (11.5-14.5); White Blood Cell (WBC) Count 23.3 thou/uL (4.8-10.8)
[2018-09-04] MEDS: Famotidine/PF 20 mg/2ml Vial SLOW IVP SCH ×2 (08:34→21:35)
[2018-09-04] MEDS: Fluconazole In NaCl,Iso-Osm 400 MG in Premix Bag 1 BAG IVPB SCH (08:35)
[2018-09-04 08:46] LABS: Vancomycin, Random 13.8 ug/mL (See Comment)
[2018-09-04] MEDS ORDERED: Potassium Phosphate 30 MMOL in Sodium Chloride 0.9% 250 ML 250 ML IVPB SCH (09:00)
[2018-09-04] MEDS: Vancomycin HCl 1 GM in Premix Bag 1 BAG IVPB SCH (09:05)
[2018-09-04] MEDS ORDERED: Dextrose 5% in Water 1,000 ML IV SCH (11:05)
[2018-09-04] MEDS ORDERED: Potassium Chloride 40 MEQ in Premix Bag 1 BAG IVPB SCH (11:15)
--- NOTE | 2018-09-04 11:37 | PRG ---
DATE OF SERVICE: SUBJECTIVE: Mr. Noguera is doing well today. He is in ICU on the ventilator. OBJECTIVE: VITAL SIGNS: Heart rate 105 to 112, blood pressure 108/64. Gastric output 600 mL. Left chest tube 100, right chest tube 10. Urine output 2220. LUNGS: Clear to auscultation. CARDIAC: Regular rate and rhythm without murmur or gallop. ABDOMEN: Soft. ABThera in place. EXTREMITIES: Unremarkable. LABORATORY DATA: White count 23,000, hemoglobin 7.6. Potassium 3, has been replaced for hypokalemia. Phosphorus low, has been replaced. ASSESSMENT: 1. Low potassium and phosphorus, electrolyte replacement. 2. The patient is being diuresed and IV fluids TKO'd. Observe clinically. Recheck his potassium later today. Plan to return to the operating room on Thursday for abdominal washout, hopefully abdominal wall closure. Job ID: [id number]
[2018-09-04] MEDS ORDERED: Furosemide 100 MG/10 ML VIAL SLOW IVP SCH (14:00)
--- NOTE | 2018-09-04 14:19 | PRG ---
DATE OF SERVICE: 09/04/2018 SERVICE: Pulmonary Medicine. INTERVAL HISTORY: The patient is doing really quite well from respiratory standpoint. There has been no interval change to his condition. He cannot register any complaints at this point. He is requiring a little bit of sedation, but he is moving all 4 extremities with purpose. He seems to be opening his eyes and closing them, touched more often. People say that he intends. At one point, it appears as though he may have closed his eyes intentionally after being asked. That being said, we have not seen any significant robust changes to his neurologic exam. OBJECTIVE: VITAL SIGNS: Afebrile, pulse is 109, blood pressure is 127/86, respirations are 15, saturation is 95% on 40% FiO2, and PEEP of 7. GENERAL: The patient is intubated. He is a little encephalopathic. HEENT: Normocephalic and atraumatic. Sclerae are white. Conjunctivae are pink. Oral mucosa is moist without lesions. LUNGS: Decent air entry. There is no prolonged expiratory phase. Rhonchi are present. No wheezing. HEART: Normal rate and regular. ABDOMEN: Soft, nontender, and nondistended. Bowel sounds are positive. MUSCULOSKELETAL: No cyanosis or clubbing. There is diffuse 1+ to 2+ pitting throughout. GENITOURINARY: Baldwin catheter in place. NEUROLOGIC: He still moves all four extremities spontaneously. He withdraws to noxious stimuli. LABORATORY DATA: WBC is stable at 23.3, hemoglobin 7.6, and platelets 189,000. Band count is down to 15% on top of 62% neutrophils. Sodium 146, potassium 3.0, chloride 112. Creatinine is up-trending to 151, BUN 23. Phosphorus 2.0. In's and out's are -600 mL over the last 24 hours. ASSESSMENT: 1. Acute hypoxic respiratory failure, continuing to improve. 2. Pulseless electrical activity, status post return of circulation. 3. Hemorrhagic shock, resolved. 4. Acute blood loss anemia, stable. 5. Metabolic encephalopathy. 6. Anoxic brain injury, possible. 7. Hypokalemia. 8. Hypophosphatemia. DISCUSSION AND PLAN: We will replace the potassium and phosphorus. DVT prophylaxis will be considered. We will send him down for CT of the head. If there is no significant evidence of blood, we will initiate DVT prophylaxis. Empiric antibiotics will be continued. D5 water will be continued. I will back off his Lasix for 24 hours. Critical care time: 30 minutes. Job ID: [id number] [facility]
--- NOTE | 2018-09-04 15:26 | CT ---
CT BRAIN: DATE: 09/04/2018. PROVIDED CLINICAL HISTORY: FINDINGS: Evidence for intracranial hemorrhage. FINDINGS: The ventricular system appears normal in size and morphology. There is no evidence for intracranial hemorrhage or mass effect. There is a focal area of diminished attenuation seen involving the perive ntricular white matter adjacent to the anterior aspect of the body of the right lateral ventricle. Th e extracranial soft tissues and osseous structures demonstrate an unremarkable CT appearance with the exception of paranasal sinus mucosal disease. IMPRESSION: 1. No evidence for intracranial hemorrhage or mass effect. 2. Nonspecific small white matter hypodensity in the cerebral white matter. 3. Paranasal sinus mucosal disease. POS: [facility]
[2018-09-04] MEDS: Heparin 5,000 UNITS/ML VIAL SC SCH ×2 (16:11→21:45)
[2018-09-04 19:08] LABS: Anion Gap 12 mmol/L (10-20); Carbon Dioxide 29 mmol/L (22-29); Chloride 110 mmol/L (98-107); Potassium 3.8 mmol/L (3.5-5.1); Sodium 147 mmol/L (136-145)
[2018-09-04] MEDS: Vancomycin HCl 1.25 GM in Sodium Chloride 0.9% 250 ML 250 ML IVPB SCH (21:36)
[2018-09-05] MEDS: Piperacillin/Tazobactam 3.375 GM in Sodium Chloride 0.9% 100 ML IVPB SCH ×5 (00:59→23:51)
[2018-09-05] MEDS: fentaNYL Citrate/PF 2,000 MCG in Sodium Chloride 0.9% 60 ML IV SCH (01:48)
[2018-09-05] MEDS: Dextrose 5% in Water 1,000 ML IV SCH ×3 (02:00→21:16)
[2018-09-05 04:59] LABS: Anion Gap 10 mmol/L (10-20); BUN (Urea Nitrogen) 28 mg/dL (8.9-20.6); Calc. Creatinine Clearance 76 mL/min (70-130); Calcium 8.2 mg/dL (7.8-10.44); Carbon Dioxide 29 mmol/L (22-29); Chloride 110 mmol/L (98-107); Estimated GFR-MDRD 49; Glucose 116 mg/dL (70-105); Magnesium 1.7 mg/dL (1.6-2.6); Potassium 3.3 mmol/L (3.5-5.1); Sodium 146 mmol/L (136-145)
[2018-09-05 05:31] LABS: Phosphorus 2.8 mg/dL (2.3-4.7)
[2018-09-05 05:47] LABS: Band 19 % (5-11); Eosinophils 5 % (0-10); Hemoglobin 7.7 g/dL (14.0-18.0); Lymphocytes 10 % (21-51); MDiff Complete? YES; Mean Corpuscular HGB CONC 32.6 g/dL (32.0-36.0); Mean Corpuscular Hemoglobin 29.7 pg (27.0-31.0); Mean Corpuscular Volume 91.2 fL (78.0-98.0); Mean Platelet Volume 9.2 fL (7.4-10.4); Metamyelocyte 2 % (0-0); Monocytes 10 % (0-10); Myelocyte 3 % (0-0); Neutrophil 51 % (42-75); Nucleated RBC 5 % (0); PLT Morphology Comment Appears Adequate; Platelet Count 264 thou/uL (130-400); Polychromasia SLIGHT = 2-3 cells (100X) (0-2/hpf); RBC Distribution Width 13.7 % (11.5-14.5); Red Blood Cell (RBC) Count 2.59 mill/uL (4.70-6.10); White Blood Cell (WBC) Count 22.8 thou/uL (4.8-10.8)
[2018-09-05] MEDS: Propofol 1,000 MG/100 ML VIAL IV PRN (06:38)
--- NOTE | 2018-09-05 07:37 | RAD ---
PORTABLE CHEST: DATE: 09/05/2018. PROVIDED CLINICAL HISTORY: Respiratory insufficiency. FINDINGS: Comparison is made with the study dated 09/03/2018. Significant interval change with respect to the p rior examination is not apparent. IMPRESSION: As above. POS: [facility]
[2018-09-05] MEDS: Famotidine/PF 20 mg/2ml Vial SLOW IVP SCH ×2 (08:38→21:16)
[2018-09-05] MEDS: Heparin 5,000 UNITS/ML VIAL SC SCH ×3 (08:39→21:16)
[2018-09-05] MEDS: Fluconazole In NaCl,Iso-Osm 400 MG in Premix Bag 1 BAG IVPB SCH (08:39)
[2018-09-05] MEDS: Vancomycin HCl 1.25 GM in Sodium Chloride 0.9% 250 ML 250 ML IVPB SCH ×2 (10:29→21:16)
[2018-09-05] MEDS ORDERED: Magnesium 2 GM/50 ML 2 GM in Premix Bag 1 BAG IVPB SCH (12:45)
--- NOTE | 2018-09-05 13:40 | PRG ---
DATE OF SERVICE: 09/05/2018 SERVICE: Pulmonary Medicine. INTERVAL HISTORY: The patient is doing fine from respiratory standpoint. He is breathing comfortably. There has been no interval change to his condition. He cannot provide any additional elements of the history. I was here for his sedation holiday today. He thrashed about the bed with some purposeful activity. He shakes his head left and right. He will spontaneously open his eyes, but he will not look at us. He had a CT of the head yesterday, which was reassuring. There did not appear to be any anoxic damage, and after six days, we should have seen it if it were going to be severe. He cannot provide any additional elements of the history. Nursing reports no additional events overnight. PHYSICAL EXAMINATION: VITAL SIGNS: Afebrile currently. T-max overnight was 100.9. Pulse 117, blood pressure 128/100, respirations 13, and saturation 97% on mechanical ventilation with an FiO2 of 40% and a PEEP of 5. HEENT: Normocephalic and atraumatic. Sclerae white. Conjunctivae pink. Oral mucosa is moist without lesions. LUNGS: Decent air entry. Rhonchi are present. There are some dependent crackles present. HEART: Normal rate, regular. ABDOMEN: Soft, nontender, and nondistended. Bowel sounds are positive. MUSCULOSKELETAL: No cyanosis or clubbing. There is no pitting in the bilateral lower extremities. LABORATORY DATA: WBC 22.8, hemoglobin 7.7, platelets 264,000. Band count is stable at 19, neutrophil count is dropping to 51. INR 1.5. Creatinine has bumped up slightly to 1.64, BUN 28, potassium 3.3, sodium is gently downtrending to 147. Phosphorus 2.8, magnesium 1.7. In the last 24 hours, the patient was net negative 3.2 L. IMAGING STUDIES: CT of the brain demonstrates no acute intracranial abnormality. Paranasal sinus mucosal disease is noted. Chest x-ray demonstrates no significant interval change. Endotracheal tube remains in decent position. Two left-sided thoracostomy tubes are in good position. There is no significant pneumothorax on the right. There is a left basilar pleural parenchymal opacification, which remains roughly stable. Subclavian central venous catheter is present on the left. ASSESSMENT: 1. Acute hypoxic respiratory failure, improving. 2. Pulseless electrical activity, status post return of circulation. 3. Hemorrhagic shock, resolved. 4. Acute blood loss anemia, stable. 5. Metabolic encephalopathy. 6. Anoxic brain injury, possible. DISCUSSION AND PLAN: We will replace the magnesium and potassium once again. We will continue our empiric antibiotics and D5 water. We will continue to diurese the patient down to euvolemia as tolerated, but he is fast approaching this. Pulmonary will continue to follow. He will go down for closing of the belly tomorrow. If after 10 to 12 days, the patient does not make a meaningful neurologic improvement, tracheostomy may need to be considered. Ultimately, the patient will require LTAC placement when he gets out of here unless he makes significant neurologic recovery. That being said, since he is young, he has come through this much, I would like to give him the benefit of doubt and give his brain at least 6 weeks to 8 weeks to make a recovery. Critical care time: 30 minutes. Job ID: [id number] MTDD
--- NOTE | 2018-09-05 15:52 | PRG ---
DATE OF SERVICE: SUBJECTIVE: Mr. Noguera is intubated on ventilator. He is off pressors for the last 72 hours. OBJECTIVE: VITAL SIGNS: Heart rate 115, blood pressure 117/72, respiratory rate 15. CHEST: Right chest tube has been removed yesterday. Left chest tube, 100 over the last 24 hours. LUNGS: Clear to auscultation. CARDIAC: Regular rate and rhythm without murmur or gallop. ABDOMEN: Soft. LABORATORY DATA: Urine output 5520. Hemoglobin 7.7, white count 22. Basic metabolic profile, normal. Potassium 3.3. ASSESSMENT AND PLAN: 1. Open abdomen. Plan abdominal washout and hopefully definitive closure tomorrow. 2. Anemia, one unit of blood transfusion today. 3. Respiratory failure. Continue ventilator. Hopefully, wean post closure. Job ID: [id number]
[2018-09-05] MEDS: Acetaminophen 1,000 MG in Premix Bag 1 BAG IVPB PRN (17:10)
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
[2018-09-06] MEDS: Propofol 1,000 MG/100 ML VIAL IV PRN ×3 (00:44→21:09)
[2018-09-06] MEDS: fentaNYL Citrate/PF 2,000 MCG in Sodium Chloride 0.9% 60 ML IV SCH (01:12)
[2018-09-06] MEDS: Lorazepam 2 MG/ML VIAL SLOW IVP PRN (02:00)
[2018-09-06 04:36] LABS: Band 18 % (5-11); Eosinophils 10 % (0-10); Hemoglobin 9.1 g/dL (14.0-18.0); Lymphocytes 11 % (21-51); MDiff Complete? YES; Mean Corpuscular HGB CONC 32.8 g/dL (32.0-36.0); Mean Corpuscular Hemoglobin 30.4 pg (27.0-31.0); Mean Corpuscular Volume 92.6 fL (78.0-98.0); Mean Platelet Volume 9.6 fL (7.4-10.4); Metamyelocyte 2 % (0-0); Monocytes 7 % (0-10); Myelocyte 1 % (0-0); Neutrophil 51 % (42-75); Nucleated RBC 6 % (0); Platelet Count 308 thou/uL (130-400); Polychromasia SLIGHT = 2-3 cells (100X) (0-2/hpf); Red Blood Cell (RBC) Count 2.99 mill/uL (4.70-6.10); White Blood Cell (WBC) Count 22.2 thou/uL (4.8-10.8)
[2018-09-06 04:44] LABS: Anion Gap 11 mmol/L (10-20); BUN (Urea Nitrogen) 25 mg/dL (8.9-20.6); Calc. Creatinine Clearance 84 mL/min (70-130); Calcium 8.1 mg/dL (7.8-10.44); Carbon Dioxide 27 mmol/L (22-29); Chloride 110 mmol/L (98-107); Estimated GFR-MDRD 56; Glucose 118 mg/dL (70-105); Potassium 3.8 mmol/L (3.5-5.1); Sodium 144 mmol/L (136-145)
[2018-09-06] MEDS: Dextrose 5% in Water 1,000 ML IV SCH ×2 (05:31→16:20)
[2018-09-06] MEDS: Piperacillin/Tazobactam 3.375 GM in Sodium Chloride 0.9% 100 ML IVPB SCH ×3 (05:32→17:17)
[2018-09-06] MEDS: Fluconazole In NaCl,Iso-Osm 400 MG in Premix Bag 1 BAG IVPB SCH (08:15)
[2018-09-06] MEDS: Famotidine/PF 20 mg/2ml Vial SLOW IVP SCH ×2 (08:16→20:47)
[2018-09-06] MEDS: Vancomycin HCl 1.25 GM in Sodium Chloride 0.9% 250 ML 250 ML IVPB SCH ×2 (08:20→20:47)
[2018-09-06 08:41] LABS: Vancomycin, Trough 19.9 ug/mL
[2018-09-06] MEDS: Heparin 5,000 UNITS/ML VIAL SC SCH ×3 (08:56→20:47)
[2018-09-06] MEDS ORDERED: Furosemide 20 MG/2 ML VIAL SLOW IVP SCH (09:00)
[2018-09-06] MEDS: Acetaminophen 1,000 MG in Premix Bag 1 BAG IVPB PRN (11:29)
--- NOTE | 2018-09-06 12:12 | PRG ---
DATE OF SERVICE: 09/06/2018 SUBJECTIVE: Mr. Noguera is intubated on ventilator. He has been off pressors for more than 72 hours and does not appear to be in any acute distress. OBJECTIVE: VITAL SIGNS: Blood pressure 101/78, pulse 113, respirations 17, O2 saturation 94% on ventilator, and temperature 98.6. GENERAL: The patient is sedated on ventilator. No apparent distress. CHEST: Lungs are clear to auscultation bilaterally. Equal chest rise. CARDIAC: Regular rate and rhythm with no murmur. ABDOMEN: Soft. Decreased bowel sounds. LABORATORY DATA: White blood cell count 22.2, hemoglobin 9.1, hematocrit 27.7, platelets 308. Chemistry; sodium is 144, potassium 3.8, BUN 25, and creatinine 1.46. ASSESSMENT AND PLAN: 1. Open abdomen, planning for repeat abdominal washout today. Hopeful for definitive closure today. 2. Anemia. The patient is status post 1 unit blood transfusion yesterday. Hemoglobin is improved. 3. Respiratory failure. Continuation of ventilator as planned. Will hopefully wean after closure today of abdomen. 4. Starting tube feeds. Job ID: [id number]
[2018-09-06] MEDS ORDERED: Fentanyl 100 MCG/2 ML VIAL ONE (13:06)
[2018-09-06] MEDS ORDERED: Fentanyl 250 MCG/5 ML VIAL ONE (13:24)
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
[2018-09-06] MEDS ORDERED: Rocuronium Bromide 50 MG/5 ML VIAL ONE (14:15)
--- NOTE | 2018-09-06 14:24 | PRG ---
DATE OF SERVICE: 09/06/2018 SERVICE: Pulmonary Medicine. INTERVAL HISTORY: The patient is doing outstanding from a respiratory standpoint. Oxygen requirements continue to improve. Nursing reports no overnight events. PHYSICAL EXAMINATION: VITAL SIGNS: Afebrile. Pulse 110, blood pressure 117/72, respirations 18, saturation 97% on 30% FiO2 and a PEEP of 5. HEENT: Normocephalic and atraumatic. Sclerae white. Conjunctivae pink. Oral mucosa is moist without lesions. LUNGS: Decent air entry. Rhonchi are present. There is no prolonged expiratory phase or wheezing appreciated. HEART: Tachycardic. Regular. ABDOMEN: Soft and nontender. Bowel sounds are hypoactive. GENITOURINARY: Baldwin catheter in place. NEUROLOGIC: Grossly nonfocal. LABORATORY DATA: WBC 22.2, hemoglobin 9.1, platelets 308,000 and rebounding nicely. Lymphocyte count is 18% on top of 51% bands. Creatinine is downtrending to 1.46, BUN 25. Basic metabolic profile is otherwise unremarkable. Sodium has finally dropped to 144. Blood culture is negative x2. Respiratory culture is negative. Urine culture is also unremarkable. ASSESSMENT: 1. Acute hypoxic respiratory failure, improving. 2. Sepsis. 3. Pulseless electrical activity, status post return of circulation. 4. Hemorrhagic shock, resolved. 5. Acute blood loss anemia, stable. 6. Anoxic brain injury, possible. DISCUSSION AND PLAN: The patient is going down for PEG tube and tracheostomy today. He is also going for a washout. He will possibly be closed today. The next time the patient has fevers, we will panculture him. For the time being, we will continue our empiric antibiotics. Pulmonary/Critical Care will continue to follow. CRITICAL CARE TIME: 30 minutes. Job ID: [id number]
[2018-09-06] MEDS ORDERED: Bupivacaine HCl 0.5%/Epinephrine 1:200,000/PF 30 ml Vial ONE ×2 (14:28→14:57)
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
[2018-09-06] MEDS: Albumin 25% 25 GM/100 ML BOT IVPB SCH (17:43)
--- NOTE | 2018-09-06 18:23 | RAD ---
FRONTAL RADIOGRAPH CHEST PORTABLE SEMI UPRIGHT: Date: 09-06-18 Comparison: 09-05-18 History: Change in respiratory status. FINDINGS: Tracheostomy tube is present, new when compared to 09-05-18 examination. Left sided vascular catheter present, distal tip overlying the region of the cavoatrial junction, stable. Nasogastric tube and Dobbhoff feeding tube in place, extending into the left upper quadrant. Cutaneous rebecca overlie the left lung base. Left sided chest tubes are present, stable. There is dense opacity in the left perihilar region and the inferior half of the left hemithorax sugg esting a combination of pleural and parenchymal opacity, worsened when compared to 09-05-18. This is a nonspecific finding. IMPRESSION: 1. Lines and tubes as detailed above. Interval worsening of density within the left perihilar region and left mid hemithorax/left lung base. Findings are nonspecific and could be related to infectious p neumonitis, aspiration, or worsening/enlarging pleural fluid. Findings could be better assessed via C T if clinically warranted. POS: JACINDA
--- NOTE | 2018-09-06 18:43 | RAD ---
FRONTAL VIEW ABDOMEN: INDICATIONS: Dobhoff placement. FINDINGS: There is a Dobhoff feeding tube with a concomitant stylet projecting over the expected region of the descending duodenum. There is catheter tubing overlying the left abdomen, as well as suture material . The port site is seen at the medial left/central abdomen. There are metallic rebecca overlying th e pelvis. IMPRESSION: Dobhoff feeding tube with tip overlying the expected region of the second portion of the duodenum. There is catheter tubing/port site tubing overlying the left abdomen, along with the surgical suture. POS: [facility]
[2018-09-06] MEDS ORDERED: PROPOFOL 200 MG/20 ML VIAL ONE (21:00)
[2018-09-06] MEDS ORDERED: PHENYLEPHRINE-NS 100 MCG/ML 10 ML SYRINGE ONE (21:00)
[2018-09-06] MEDS ORDERED: ePHEDrine/0.9% NaCl/PF SYRINGE 50 mg/10 ml ONE (21:00)
[2018-09-06] MEDS ORDERED: Propofol BOLUS 1,000 MG/100 ML VIAL IV PRN (21:04)
[2018-09-07] MEDS: Albumin 25% 25 GM/100 ML BOT IVPB SCH ×2 (00:10→05:21)
[2018-09-07] MEDS: Piperacillin/Tazobactam 3.375 GM in Sodium Chloride 0.9% 100 ML IVPB SCH ×4 (00:10→18:12)
[2018-09-07] MEDS: Dextrose 5% in Water 1,000 ML IV SCH (00:11)
[2018-09-07] MEDS: Acetaminophen 1,000 MG in Premix Bag 1 BAG IVPB PRN ×2 (00:21→12:18)
[2018-09-07] MEDS: Propofol 1,000 MG/100 ML VIAL IV PRN ×4 (02:39→20:50)
[2018-09-07 04:50] LABS: ALT (SGPT) 76 U/L (8-55); AST (SGOT) 84 U/L (5-34); Albumin 3.1 g/dL (3.5-5.0); Alkaline Phosphatase 69 U/L (40-150); Anion Gap 13 mmol/L (10-20); BUN (Urea Nitrogen) 28 mg/dL (8.9-20.6); Bilirubin, Total 5.3 mg/dL (0.2-1.2); Calc. Creatinine Clearance 70 mL/min (70-130); Calcium 8.3 mg/dL (7.8-10.44); Carbon Dioxide 24 mmol/L (22-29); Chloride 109 mmol/L (98-107); Estimated GFR-MDRD 46; Glucose 135 mg/dL (70-105); Magnesium 1.9 mg/dL (1.6-2.6); Protein, Total 6.1 g/dL (6.0-8.3); Sodium 142 mmol/L (136-145)
[2018-09-07 04:55] LABS: Hemoglobin 8.2 g/dL (14.0-18.0); Mean Corpuscular HGB CONC 33.3 g/dL (32.0-36.0); Mean Corpuscular Hemoglobin 30.9 pg (27.0-31.0); Mean Corpuscular Volume 92.8 fL (78.0-98.0); Mean Platelet Volume 9.9 fL (7.4-10.4); Platelet Count 391 thou/uL (130-400); RBC Distribution Width 13.9 % (11.5-14.5); Red Blood Cell (RBC) Count 2.65 mill/uL (4.70-6.10); White Blood Cell (WBC) Count 28.1 thou/uL (4.8-10.8)
[2018-09-07 05:13] LABS: Phosphorus 3.8 mg/dL (2.3-4.7)
[2018-09-07 05:18] LABS: Band 29 % (5-11); Lymphocytes 5 % (21-51); MDiff Complete? YES; Metamyelocyte 1 % (0-0); Monocytes 3 % (0-10); Neutrophil 62 % (42-75); Nucleated RBC 6 % (0)
[2018-09-07] MEDS: Furosemide 20 MG/2 ML VIAL SLOW IVP SCH (05:22)
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
[2018-09-07] MEDS: Vancomycin HCl 1.25 GM in Sodium Chloride 0.9% 250 ML 250 ML IVPB SCH (09:14)
[2018-09-07] MEDS: Fluconazole In NaCl,Iso-Osm 400 MG in Premix Bag 1 BAG IVPB SCH (09:14)
[2018-09-07] MEDS: Heparin 5,000 UNITS/ML VIAL SC SCH ×3 (09:14→20:50)
[2018-09-07] MEDS: Famotidine/PF 20 mg/2ml Vial SLOW IVP SCH ×2 (09:14→20:51)
[2018-09-07] MEDS: fentaNYL Citrate/PF 2,000 MCG in Sodium Chloride 0.9% 60 ML IV SCH (10:04)
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
[2018-09-07] MEDS ORDERED: Dextrose 5% in Water 1,000 ML IV SCH (10:18)
--- NOTE | 2018-09-07 11:16 | PRG ---
DATE OF SERVICE: 09/07/2018 SUBJECTIVE: Chuckie is on the ventilator today. He is tachypneic at times and not weanable at this time. Last night, a bronchoscopy was performed because of mucus plugging in left lung. Chest x-ray will be ordered this morning. OBJECTIVE: LUNGS: Diminished, left greater than right. Rhonchi at base. No wheezing. CARDIAC: Mild sinus tachycardia, 100 to 104. ABDOMEN: Soft, quiet. EXTREMITIES: Edema. TUBES/LINES: Dobbhoff tube and he is tolerating 20 mL an hour. Tube feedings goal 45. Continue 20 mL/hour today and advance slowly beginning tomorrow pending his status. Gastric drainage 75 mL per NG tube and G-tube. SKIN: Wound VAC midline. Skin, subcutaneous tissue, and fascia are closed. LABORATORY DATA: White count 28,000 and hemoglobin 8.2. BUN 28, creatinine 1.72, potassium 4.0, sodium 142. ASSESSMENT AND PLAN: 1. Respiratory failure, status post tracheostomy. Tracheostomy site is clean and dry without problems. Wean per Pulmonary. The patient is not weanable at this time. 2. Malnutrition. Continue tube feedings. Slowly advance beginning tomorrow to goal rate of 45. Feeding tube . 3. Mucus plugging, status post bronchoscopy last night by Pulmonary. Repeat chest x-ray today. 4. Check bladder pressure after wound closure. Job ID: [id number]
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
[2018-09-08] MEDS: Propofol 1,000 MG/100 ML VIAL IV PRN ×3 (00:19→17:51)
[2018-09-08] MEDS: Piperacillin/Tazobactam 3.375 GM in Sodium Chloride 0.9% 100 ML IVPB SCH ×2 (00:19→05:17)
[2018-09-08] MEDS: Acetaminophen 1,000 MG in Premix Bag 1 BAG IVPB PRN (00:57)
[2018-09-08 05:00] LABS: ALT (SGPT) 65 U/L (8-55); AST (SGOT) 88 U/L (5-34); Albumin 3.1 g/dL (3.5-5.0); Alkaline Phosphatase 76 U/L (40-150); Anion Gap 13 mmol/L (10-20); BUN (Urea Nitrogen) 32 mg/dL (8.9-20.6); Bilirubin, Total 5.8 mg/dL (0.2-1.2); Calc. Creatinine Clearance 73 mL/min (70-130); Calcium 8.6 mg/dL (7.8-10.44); Carbon Dioxide 25 mmol/L (22-29); Chloride 108 mmol/L (98-107); Estimated GFR-MDRD 48; Globulin 3.1 g/dL (2.4-3.5); Glucose 108 mg/dL (70-105); Potassium 3.2 mmol/L (3.5-5.1); Protein, Total 6.2 g/dL (6.0-8.3); Sodium 143 mmol/L (136-145)
[2018-09-08] MEDS: Furosemide 20 MG/2 ML VIAL SLOW IVP SCH (05:17)
[2018-09-08 05:35] LABS: Band 14 % (5-11); Eosinophils 5 % (0-10); Hemoglobin 8.2 g/dL (14.0-18.0); Lymphocytes 10 % (21-51); MDiff Complete? YES; Mean Corpuscular HGB CONC 32.9 g/dL (32.0-36.0); Mean Corpuscular Hemoglobin 30.8 pg (27.0-31.0); Mean Corpuscular Volume 93.8 fL (78.0-98.0); Mean Platelet Volume 9.9 fL (7.4-10.4); Monocytes 5 % (0-10); Neutrophil 66 % (42-75); Nucleated RBC 6 % (0); PLT Morphology Comment Appears Increased; Platelet Count 470 thou/uL (130-400); Polychromasia SLIGHT = 2-3 cells (100X) (0-2/hpf); RBC Distribution Width 15.1 % (11.5-14.5); Red Blood Cell (RBC) Count 2.65 mill/uL (4.70-6.10)
[2018-09-08] MEDS: Famotidine/PF 20 mg/2ml Vial SLOW IVP SCH ×2 (08:49→20:48)
[2018-09-08] MEDS: Heparin 5,000 UNITS/ML VIAL SC SCH ×3 (08:50→20:48)
[2018-09-08] MEDS: Fluconazole In NaCl,Iso-Osm 400 MG in Premix Bag 1 BAG IVPB SCH (08:50)
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
--- NOTE | 2018-09-08 09:24 | PRG ---
DATE OF SERVICE: 09/07/2018 SERVICE: Pulmonary Medicine. INTERVAL HISTORY: The patient is doing poorly from a respiratory standpoint. He cannot provide any additional elements of the history. He underwent a PEG tube, and tracheostomy yesterday. He also has a Dobhoff feeding tube in as well as a larger bore feeding tube in the stomach. Whenever sedation is withheld, he has significant agitation. He has intermittent fevers still. OBJECTIVE: VITAL SIGNS: Afebrile currently. His T-max was 101.7. Pulse 99, blood pressure 129/82, respirations 24, saturation 97% on 40% FiO2 and a PEEP of 5. HEENT: Normocephalic and atraumatic. Sclerae white. Conjunctivae pink. Oral mucosa is moist without lesions. LUNGS: Decent air entry. Crackles and rhonchi are both present. HEART: Normal rate. Regular. ABDOMEN: Soft. Distended. Bowel sounds are hypoactive. No rebound or guarding is noted. MUSCULOSKELETAL: No cyanosis or clubbing. There is diffuse 2+ pitting throughout. GENITOURINARY: Baldwin catheter in place. LABORATORY DATA: WBC 28.1, hemoglobin 8.2, platelets 391,000. Creatinine 1.72 and up trending, BUN 28. Basic metabolic profile is otherwise unremarkable. AST, and ALT are downtrending. Sputum is growing gram-negative michael from the 05 of September. The sensitivities are currently pending. Blood cultures x2, and urine culture are both unremarkable. ASSESSMENT: 1. Acute hypoxic respiratory failure. 2. Severe sepsis. 3. Healthcare associated pneumonia secondary to gram-negative michael. 4. Pulseless electrical activity, status post return of circulation. 5. Hemorrhagic shock, resolved. 6. Acute blood loss anemia, stable. 7. Anoxic brain injury, possible. DISCUSSION AND PLAN: I will discontinue the vancomycin today. Because his creatinine is up trending, I will get an ultrasound of the bilateral kidneys. He will remain on mechanical ventilation over the next 24 hours. Once his oxygen requirement starts to improve, he will be a candidate for transition over to a T collar, but for the time being, he is requiring sedation to prevent significant desaturations. CRITICAL CARE TIME: 30 minutes. Job ID: [id number]
[2018-09-08] MEDS: fentaNYL Citrate/PF 2,000 MCG in Sodium Chloride 0.9% 60 ML IV SCH (09:26)
--- NOTE | 2018-09-08 13:34 | PRG ---
DATE OF SERVICE: 09/08/2018 SUBJECTIVE: Chuckie is still on the ventilator today and remains to be intermittently tachypneic and not weanable from vent today. At this time, the patient does seem to be more alert today and not sedated this morning, but with fentanyl for pain control. OBJECTIVE: VITAL SIGNS: Blood pressure 121/71, pulse 113-99, respiratory rate 23, temperature 99.1, and O2 saturation 97 on mechanical ventilator. GENERAL: The patient is more alert and less sedated this morning. LUNGS: Diminished sounds. Rhonchi at left base. No wheezing. Overall improvement from yesterday. CARDIAC: Intermittent sinus tachycardia. No murmurs. ABDOMEN: Diminished bowel sounds. EXTREMITIES: Mild lower extremity edema. SKIN: Wound VAC in midline abdomen. LABORATORY DATA: White blood cell count 29, hemoglobin 8.2, and hematocrit 24.8. Sodium 143, potassium 3.2, chloride 108, carbon dioxide 25, BUN 32, and creatinine 1.68. ASSESSMENT AND PLAN: 1. Respiratory failure, status post tracheostomy. We will wean off his vent per Pulmonology's direction and recommendation. The patient did not appear to be weanable this morning. 2. Malnutrition. Continue tube feedings, and we will increase today as tolerated. 3. Mucus plugging. Repeat chest x-ray today seems to be improved, which is congruent with physical examination. Continue antibiotics. 4. Plan for checking bladder pressure after wound closure. Job ID: [id number]
[2018-09-08] MEDS: fentaNYL 75 mcg/hour Patch TD SCH (17:33)
--- NOTE | 2018-09-08 18:14 | PRG ---
DATE OF SERVICE: 09/08/2018 SERVICE: Pulmonary Medicine. INTERVAL HISTORY: The patient is doing okay from a respiratory standpoint. His oxygen requirements have actually improved a lot. That being said, mentation duffy, he cannot tolerate any sedation holidays. This prevents us from actually seeing what he looks like underneath. He cannot provide any additional elements of the history. There has been no interval change to his condition. PHYSICAL EXAMINATION: VITAL SIGNS: T-max 100.9, pulse 111, blood pressure 102/57, respirations 26, and saturation 97% on 40% FiO2 and a PEEP of 5. GENERAL: The patient has a tracheostomy in place. He is under the influence of sedation. HEENT: Normocephalic and atraumatic. Sclerae white. Conjunctivae pink. Oral mucosa is moist without lesions. LUNGS: Decent air entry. Rhonchi are present. Crackles are also present. HEART: Normal rate. Regular. ABDOMEN: Soft, nontender, and nondistended. Bowel sounds are positive. MUSCULOSKELETAL: No cyanosis or clubbing. Diffuse pitting is present in the bilateral upper and lower extremities. GENITOURINARY: Baldwin catheter in place. NEUROLOGIC: The patient still does not attend. He is not following any commands. He does move all 4 extremities very vigorously, particularly whenever sedation is held. LABORATORY DATA: WBC 29, hemoglobin 8.2, and platelets 470,000 and uptrending. Band count is dropping off to 14. INR 1.5. Creatinine downtrending to 1.68 and BUN 32. Basic metabolic profile is otherwise unremarkable. AST and ALT remain stable. Sputum is growing enterobacter aerogenes, which should be a pansensitive organism. IMAGING: Chest x-ray demonstrates a stable chest. There is left lower lobe pleural-parenchymal abnormality noted. There has been interval removal of the left-sided chest tubes. ASSESSMENT: 1. Acute hypoxic respiratory failure. 2. Severe sepsis. 3. Healthcare-associated pneumonia secondary to Enterobacter aerogenes. 4. Pulseless electrical activity, status post return of circulation. 5. Hemorrhagic shock, resolved. 6. Acute blood loss anemia, stable. 7. Anoxic brain injury, possible. DISCUSSION AND PLAN: We are going to see if we can minimize sedation through time. I will put him on Klonopin and Seroquel schedule. We will schedule some simethicone, and also put him on a fentanyl patch and discontinue the drip. We will minimize the propofol. We will give him Precedex if necessary. I am going to initiate a 7-day course of Levaquin to treat the sputum culture. Once we can get him off his sedation for 48 to 72 hours, my hope is that his brain will start to recover very nicely. That being said, that has yet to be seen. If off sedation , he does not do purposeful activity, MRI of the brain will be considered. Job ID: [id number] MTDJennifer
[2018-09-08] MEDS: Simethicone Chewable 80 MG TAB PO SCH (19:52)
[2018-09-08] MEDS: Senokot S 8.6-50 MG TAB PO SCH (20:48)
[2018-09-08] MEDS: clonazePAM 0.5 MG TAB PO SCH (20:48)
[2018-09-09] MEDS: Propofol 1,000 MG/100 ML VIAL IV PRN (03:25)
[2018-09-09 05:08] LABS: Anion Gap 16 mmol/L (10-20); BUN (Urea Nitrogen) 39 mg/dL (8.9-20.6); Calc. Creatinine Clearance 65 mL/min (70-130); Calcium 8.9 mg/dL (7.8-10.44); Carbon Dioxide 25 mmol/L (22-29); Chloride 110 mmol/L (98-107); Estimated GFR-MDRD 41; Glucose 108 mg/dL (70-105); Potassium 3.7 mmol/L (3.5-5.1); Sodium 147 mmol/L (136-145)
[2018-09-09 05:30] LABS: Band 1 % (5-11); Hemoglobin 7.8 g/dL (14.0-18.0); Hypochromia SLIGHT = 6-15 cells (100X) (0-5/hpf); Lymphocytes 14 % (21-51); MDiff Complete? YES; Mean Corpuscular HGB CONC 32.2 g/dL (32.0-36.0); Mean Corpuscular Hemoglobin 30.3 pg (27.0-31.0); Mean Platelet Volume 9.5 fL (7.4-10.4); Monocytes 2 % (0-10); Neutrophil 83 % (42-75); PLT Morphology Comment Appears Increased; Platelet Count 575 thou/uL (130-400); Polychromasia SLIGHT = 2-3 cells (100X) (0-2/hpf); Red Blood Cell (RBC) Count 2.58 mill/uL (4.70-6.10); Target Cells SLIGHT = 2-5 cells (100X) (0-1/hpf); White Blood Cell (WBC) Count 28.5 thou/uL (4.8-10.8)
[2018-09-09] MEDS: Furosemide 20 MG/2 ML VIAL SLOW IVP SCH (05:36)
[2018-09-09] MEDS: Acetaminophen 650 MG/20.3 ML UDCUP PO PRN (07:19)
[2018-09-09] MEDS: Famotidine/PF 20 mg/2ml Vial SLOW IVP SCH ×2 (08:58→20:20)
[2018-09-09] MEDS: Heparin 5,000 UNITS/ML VIAL SC SCH ×3 (08:58→20:19)
[2018-09-09] MEDS: Senokot S 8.6-50 MG TAB PO SCH ×2 (09:24→20:20)
[2018-09-09] MEDS: clonazePAM 0.5 MG TAB PO SCH ×2 (09:25→20:20)
[2018-09-09] MEDS: Simethicone Chewable 80 MG TAB PO SCH ×3 (09:25→20:21)
[2018-09-09] MEDS ORDERED: Bisacodyl 10 MG SUPP PR PRN (09:29)
[2018-09-09] MEDS ORDERED: Bisacodyl 10 MG SUPP PR SCH (09:30)
--- NOTE | 2018-09-09 10:51 | RAD ---
SINGLE VIEW OF THE CHEST: Comparison: 09-08-18 History: Respiratory distress. FINDINGS: Single view of the chest shows an enlarged but stable cardiomediastinal silhouette. The tracheostomy and central venous catheter are unchanged in position. The feeding tube and NG tube have been removed . Post-surgical changes are seen in the left thorax. There appears to be a small residual left pleura l effusion. IMPRESSION: Stable left pleural effusion. POS: [facility]
--- NOTE | 2018-09-09 11:34 | PRG ---
DATE OF SERVICE: 09/09/2018 SUBJECTIVE: Chuckie remained on the ventilator today and appears to be more active than previously. The patient has spiked some fevers this morning. OBJECTIVE: VITAL SIGNS: Blood pressure 100/52, pulse 110, respiratory rate 23, O2 saturation 95% on ventilator, and temperature 102.2. GENERAL: The patient is slightly more alert and active this morning. LUNGS: Diminished sounds. Rhonchi at left base. No wheezing. Similar to yesterday's exam. CARDIAC: Intermittent sinus tachycardia. No murmurs. ABDOMEN: Diminished bowel sounds. EXTREMITIES: Mild lower extremity edema. SKIN: No rashes. Wound VAC in midline abdomen. LABORATORY DATA: White blood cell count 28.5, hemoglobin 7.8, and hematocrit 24.2. Sodium 147, potassium 3.7, BUN 39, creatinine 1.9, and glucose 108. ASSESSMENT AND PLAN: 1. Respiratory failure, status post tracheostomy. We will follow Pulmonology's direction and recommendations for weaning off the vent as tolerated. 2. Malnutritions. Continue tube feedings. We will titrate up as tolerated. 3. Severe sepsis, per recommendations of Dr. Olivo. The patient is now on levofloxacin. We will continue these antibiotics. 4. Regarding his sedation, we will follow up on Dr. Olivo's recommendations and monitor the patient. Job ID: [id number]
--- NOTE | 2018-09-09 12:04 | PRG ---
DATE OF SERVICE: 09/09/2018 SERVICE: Pulmonary Medicine. INTERVAL HISTORY: The patient is doing okay from respiratory standpoint. He requires 40% FiO2. Whenever we decrease his pressure support, however, he starts to struggle with nasal flaring. He becomes agitated and thrashed about the bed. The same can happen whenever we minimize his propofol. We are working on his mentation with other medications to see if we can get rid of some of these medications keeping him sleepy. He cannot provide any additional elements of the history. He appears to be a little bit more aware today, but once again, he is not following commands, or attending. OBJECTIVE: VITAL SIGNS: T-max 103, pulse 82, blood pressure 126/76, respirations 23, and saturation 95% on 40% FiO2 and PEEP of 5. GENERAL: The patient is awake. He opens his eyes spontaneously, moves all 4 extremities, but again he is not following commands. He does not attend. HEENT: Normocephalic and atraumatic. Sclerae white. Conjunctivae pink. Oral mucosa is moist without lesions. LUNGS: Excellent air entry. Rhonchi are present, particularly on the left. There are some dependent crackles noted. No prolonged expiratory phase or wheezing is appreciated. HEART: Normal rate, regular. ABDOMEN: Soft, nontender, and nondistended. Bowel sounds are positive. MUSCULOSKELETAL: No cyanosis or clubbing. There is diffuse pitting throughout bilateral upper and lower extremities. It is significantly improved compared to prior. GENITOURINARY: Baldwin catheter in place. LABORATORY DATA: WBC 28.5 and stable, hemoglobin 7.2. Band count has significantly improved to 1%, neutrophil count is up to 83%. INR 1.5. Sodium 147, creatinine up trending to 1.9, BUN 39. Basic metabolic profile is otherwise unremarkable. Magnesium 2.0. Potassium 3.7. IMAGING DATA: Chest x-ray demonstrates tracheostomy tube is in excellent position and terminates roughly 4 to 5 cm above the level of the broderick. There is no acute cardiopulmonary abnormality on the right. The heart is distended. Left subclavian central venous catheter terminates in excellent position. I cannot see the base of the left lung and there could be a very dense consolidation located there. ASSESSMENT: 1. Acute hypoxic respiratory failure. 2. Severe sepsis. 3. Healthcare-associated pneumonia secondary to Enterobacter aerogenes. 4. Pulseless electrical activity, status post return of circulation. 5. Hemorrhagic shock, resolved. 6. Acute blood loss anemia, stable. 7. Anoxic brain injury, possible. DISCUSSION AND PLAN: The patient's sodium is trending upward again, so I am going to put him back on some D5 water. Since he is tolerating feeds, we will increase our flushes to 50 every hour. Potassium is 3.7 and will be replaced. I will panculture the patient because he is having fevers. The chest x-ray shows a dense infiltrate in the left lower lobe. This was previously putting out some bacteria, which is appropriately being covered right now with fluoroquinolone. If oxygen requirements go up, bronchoscopy will be considered. He will obviously remain in the ICU. We will continue working on minimizing sedating medications so that we can fully evaluate whether or not his brain is doing okay. CRITICAL CARE TIME: 30 minutes. Job ID: [id number]
[2018-09-09] MEDS: Ibuprofen 100 MG/5 ML UDCUP PO PRN (13:49)
[2018-09-10 04:55] LABS: Anion Gap 14 mmol/L (10-20); BUN (Urea Nitrogen) 37 mg/dL (8.9-20.6); Calc. Creatinine Clearance 83 mL/min (70-130); Calcium 8.9 mg/dL (7.8-10.44); Carbon Dioxide 27 mmol/L (22-29); Chloride 109 mmol/L (98-107); Estimated GFR-MDRD 58; Glucose 109 mg/dL (70-105); Potassium 3.1 mmol/L (3.5-5.1); Sodium 147 mmol/L (136-145)
[2018-09-10 04:57] LABS: Band 37 % (5-11); Eosinophils 1 % (0-10); Hemoglobin 9.5 g/dL (14.0-18.0); Lymphocytes 6 % (21-51); MDiff Complete? YES; Mean Corpuscular HGB CONC 32.4 g/dL (32.0-36.0); Mean Corpuscular Hemoglobin 29.9 pg (27.0-31.0); Mean Corpuscular Volume 92.5 fL (78.0-98.0); Mean Platelet Volume 9.2 fL (7.4-10.4); Monocytes 11 % (0-10); Neutrophil 45 % (42-75); Nucleated RBC 1 % (0); PLT Morphology Comment Appears Increased; Platelet Count 669 thou/uL (130-400); RBC Distribution Width 14.7 % (11.5-14.5); Red Blood Cell (RBC) Count 3.18 mill/uL (4.70-6.10); White Blood Cell (WBC) Count 28.2 thou/uL (4.8-10.8)
[2018-09-10] MEDS ORDERED: Furosemide 40 MG/4 ML VIAL ONE (05:12)
[2018-09-10] MEDS ORDERED: Furosemide 40 MG/4 ML VIAL SLOW IVP SCH (06:00)
[2018-09-10] MEDS: Furosemide 20 MG/2 ML VIAL SLOW IVP SCH (06:33)
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
[2018-09-10] MEDS ORDERED: Iopamidol 370 76% 50 ML VIAL FS ONE (09:00)
[2018-09-10] MEDS: Acetaminophen 650 MG/20.3 ML UDCUP PO PRN ×2 (09:47→19:00)
[2018-09-10] MEDS: clonazePAM 0.5 MG TAB PO SCH ×2 (09:47→20:00)
[2018-09-10] MEDS: Heparin 5,000 UNITS/ML VIAL SC SCH ×3 (09:47→20:00)
[2018-09-10] MEDS: Simethicone Chewable 80 MG TAB PO SCH ×3 (09:47→20:00)
[2018-09-10] MEDS: Famotidine/PF 20 mg/2ml Vial SLOW IVP SCH ×2 (09:47→19:59)
[2018-09-10] MEDS: Senokot S 8.6-50 MG TAB PO SCH ×2 (09:57→20:00)
[2018-09-10 13:16] LABS: Bilirubin Negative (Negative); Blood, Urine Moderate (Negative); Clarity CLEAR (Clear); Glucose, Urine (Dipstick) Negative (Negative); Leukocyte Negative (Negative); Nitrite Negative (Negative); Protein, Urine (Dipstick) 30 mg/dL (Neg-Trace); Specific Gravity, Urine 1.012 (1.002-1.036); Urobilinogen 0.2 mg/dL (0.2-1.0)
[2018-09-10 13:18] LABS: Bacteria/HPF None Seen HPF (None Seen); Hyaline Casts/LPF 0-3 HYALINE CAST LPF (0-3 Hyaline); Pathc Cast-AUWi Flag 0.14 (0-2.49); Squamous Epithelial 0-3 HPF (0-3); WBC/HPF 0-3 HPF (0-3)
--- NOTE | 2018-09-10 14:55 | PRG ---
DATE OF SERVICE: 09/10/2018 SERVICE: Pulmonary Medicine. INTERVAL HISTORY: This morning, the patient is making eye contact. He is following simple commands. He is actually nodding yes and no appropriately. He is trying to vocalize, but obviously is finding that difficult with a tracheostomy. He is running fevers again. As such, he is going down for a CT of the chest, abdomen, and pelvis. PHYSICAL EXAMINATION: VITAL SIGNS: T-max 100.2, pulse 83, blood pressure 133/89, respirations 18, saturation 99% on 40% FiO2 and a PEEP of 5. GENERAL: The patient is awake, alert, in no apparent distress. LUNGS: Decent air entry. Rhonchi are present. No prolonged expiratory phase or wheezing is appreciated. HEART: Normal rate regular. ABDOMEN: Soft, nontender, and nondistended. Bowel sounds are positive. MUSCULOSKELETAL: No cyanosis or clubbing. There is no pitting in the bilateral lower extremities. NEUROLOGIC: Grossly nonfocal. LABORATORY DATA: WBC 28.2. Band count has jumped up to 37 on top of 45% neutrophils. INR 1.5. Sodium 147, potassium 3.1, creatinine 1.42 and downtrending, BUN 37. Basic metabolic profile is otherwise unremarkable. He is net -2300 mL over the last 24 hours. IMAGING DATA: 1. CT of the chest demonstrates dense infiltrate in the left lower lobe with air bronchograms. There are bilateral pleural effusions which are small with a little bit of atelectasis present. A small amount of ascites remains. I am having the hard time tracking the course of the G-tube. Official read is currently pending. 2. Acute abdominal series demonstrates nonobstructive bowel gas pattern. Left pleural effusion is noted. Dense left lower lobe pneumonia. ASSESSMENT: 1. Acute hypoxic respiratory failure. 2. Severe sepsis. 3. Healthcare-associated pneumonia, secondary to Enterobacter aerogenes. 4. Pulseless electrical activity, status post return of circulation. 5. Hemorrhagic shock. 6. Acute blood loss anemia, stable. 7. Anoxic brain injury with returning neurologic function. DISCUSSION AND PLAN: We will continue supportive care moving forward. The sputum is growing enterobacter aerogenes, but all cultures since have been unremarkable. He is status post 8 days of empiric antibiotics with vancomycin, Zosyn,and fluconazole. These have been discontinued because he was having persistent fever, we put him on monotherapy with Levaquin. He is on day #2 of 10 of the Levaquin. Otherwise, supportive measures will be continued. We will wean oxygen away as tolerated. If we can, we will start mobilizing him as much as he can tolerate. We will start getting him into a neuro chair now that he is a touch more weight. CRITICAL CARE TIME: 30 minutes. Job ID: [id number]
[2018-09-10] MEDS: Dextrose 5% in Water 1,000 ML IV SCH (15:26)
[2018-09-10] MEDS: Potassium Chloride 40 MEQ in Premix Bag 1 BAG IVPB SCH ×3 (15:27→23:21)
--- NOTE | 2018-09-10 15:53 | RAD ---
ABDOMEN 2 VIEWS: HISTORY: Placement of G-tube. COMPARISON: CT examination same day. FINDINGS: Two images of the abdomen were obtained. There is contrast extending from the gastrostomy tube into the stomach lumen and proximal small bowel. IMPRESSION: Satisfactory location of the gastrostomy tube. POS: [facility]
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
[2018-09-11 08:42] LABS: Hemoglobin 9.7 g/dL (14.0-18.0); Mean Corpuscular HGB CONC 31.9 g/dL (32.0-36.0); Mean Corpuscular Hemoglobin 29.7 pg (27.0-31.0); Mean Corpuscular Volume 93.2 fL (78.0-98.0); Mean Platelet Volume 8.9 fL (7.4-10.4); Platelet Count 788 thou/uL (130-400); RBC Distribution Width 15.4 % (11.5-14.5); Red Blood Cell (RBC) Count 3.28 mill/uL (4.70-6.10)
[2018-09-11 08:49] LABS: Anion Gap 16 mmol/L (10-20); BUN (Urea Nitrogen) 32 mg/dL (8.9-20.6); Calc. Creatinine Clearance 74 mL/min (70-130); Calcium 8.9 mg/dL (7.8-10.44); Carbon Dioxide 23 mmol/L (22-29); Chloride 111 mmol/L (98-107); Estimated GFR-MDRD 57; Glucose 114 mg/dL (70-105); Magnesium 1.7 mg/dL (1.6-2.6); Phosphorus 2.9 mg/dL (2.3-4.7); Potassium 3.5 mmol/L (3.5-5.1); Sodium 146 mmol/L (136-145)
[2018-09-11 09:11] LABS: Band 7 % (5-11); Eosinophils 1 % (0-10); Hypochromia SLIGHT = 6-15 cells (100X) (0-5/hpf); Large Platelets SLIGHT; Lymphocytes 5 % (21-51); MDiff Complete? YES; Microcytosis SLIGHT = 6-15 cells (100X) (0-5/hpf); Monocytes 16 % (0-10); Neutrophil 71 % (42-75); Nucleated RBC 1 % (0); PLT Morphology Comment Appears Increased; Polychromasia MODERATE = 3-4 cells (100X) (0-2/hpf); White Blood Cell (WBC) Count 22.9 thou/uL (4.8-10.8)
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
[2018-09-11] MEDS: Heparin 5,000 UNITS/ML VIAL SC SCH ×3 (11:05→21:11)
[2018-09-11] MEDS: clonazePAM 0.5 MG TAB PO SCH ×2 (11:06→21:12)
[2018-09-11] MEDS: Senokot S 8.6-50 MG TAB PO SCH (11:06)
[2018-09-11] MEDS: Famotidine/PF 20 mg/2ml Vial SLOW IVP SCH ×2 (11:07→21:11)
[2018-09-11] MEDS ORDERED: Vecuronium Bromide 20 MG VIAL IV PRN (11:07)
[2018-09-11] MEDS: Dextrose 5% in Water 1,000 ML IV SCH (11:15)
[2018-09-11] MEDS ORDERED: Vecuronium 10 MG VIAL IV PRN (12:10)
[2018-09-11] MEDS ORDERED: Lorazepam 2 MG/ML VIAL SLOW IVP SCH (12:15)
[2018-09-11 14:04] LABS: Body Fluid Source THORACENTESIS FLD; Clarity Cloudy/Turbid (Clear)
[2018-09-11 14:05] LABS: BF Color Black; RBC Count-Automated 1830000 /cumm; Tube # EDTA; WBC/NonHematic-Auto 8620 /cumm
[2018-09-11 14:17] LABS: Pleural Fluid, Glucose Less than 20 mg/dL
[2018-09-11 14:18] LABS: BF Segmented Neutrophils 96 %; Cell Count Non Hematic 4 %
[2018-09-11 14:35] LABS: Pleural Fluid, LDH 12284 U/L (Not Available)
--- NOTE | 2018-09-11 14:49 | CT ---
CT GUIDED LEFT THORACENTESIS OR PARACENTESIS: DATE: 09/11/18 HISTORY: Large loculated fluid collection along the left hemidiaphragm. Uncertain whether this is in the pleur al space, abdominal cavity, or both. Status post splenectomy among other surgeries. Specific instruct ions from Dr. Chavez were to determine if this is an abscess or not, aspirate as much fluid as possi ble, but not leave a drainage catheter unless it is frankly purulent material. TECHNIQUE: Proxy signed informed consent obtained. ICU personnel came down to the CT suite with the patient. The patient was placed supine on the CT table. The skin lateral to the level of the left hemidiaphragm w as prepared and draped in the usual sterile fashion. The procedure was performed under step CT guidkylee ce. A 25 gauge needle was used to apply buffered lidocaine superficially and deeply, to the intercost al muscle. In tandem with the 25 gauge needle, a 5 Fijian Yueh catheter with stylette was advanced in to the fluid collection. The 25 gauge needle and the stylette were removed. A 60 mL syringe was used to aspirate 30 mL of low viscosity, dark, opaque, purple-black fluid, which was sent to laboratory fo r culture & sensitivity. The Yueh catheter was attached via plastic tubing to an evacuated bottle. Dr guzman was very slow, despite the low viscosity of the fluid, because of particles (presumably clot) partially obstructing the catheter, which had to be intermittently cleared by passing the stylette mu ltiple times through the Yueh catheter. Only an additional approximately 5-10 mL of fluid was drained . The Yueh catheter was removed. The patient tolerated the procedure well. No complications. FINDINGS: Very large pericardial effusion, presumably representing hemopericardium. The loculated large fluid collection centered in the region of the left hemidiaphragm has mixed attenuation, consistent with he matoma. Step CT images demonstrate the Yueh catheter with distal tip in this collection. Postprocedur e scan demonstrates no major interval change in the volume of the collection. IMPRESSION: 1. The left-sided fluid collection is a hematoma. 2. 30 mL of that fluid was sent to laboratory for culture & sensitivity. 3. No external drainage catheter was left in place. 4. No significant interval change in the volume of that collection after the procedure. POS: [facility]
[2018-09-11 15:06] LABS: Pleural Fluid, Amylase Less than 30 U/L (Not Available); Pleural Fluid, Protein 22.4 g/dL
[2018-09-11 15:56] LABS: ALT (SGPT) 57 U/L (8-55); AST (SGOT) 79 U/L (5-34); Albumin 3.1 g/dL (3.5-5.0); Alkaline Phosphatase 105 U/L (40-150); Bilirubin, Total 6.4 mg/dL (0.2-1.2); Protein, Total 7.1 g/dL (6.0-8.3)
[2018-09-11] MEDS: fentaNYL 75 mcg/hour Patch TD SCH (18:00)
[2018-09-11] MEDS ORDERED: fentaNYL 75 mcg/hour Patch TD SCH (21:00)
[2018-09-11] MEDS: Acetaminophen 650 MG/20.3 ML UDCUP PO PRN (21:11)
--- NOTE | 2018-09-11 22:40 | PRG ---
DATE OF SERVICE: 09/11/2018 SUBJECTIVE: Mr. Noguera, today, has been stable. He actually has intermittent periods where he is quite awake and cooperative and other periods where he is combative, and other periods where he is somnolent. His temperature today has not been higher than 99.9. OBJECTIVE: VITAL SIGNS: Blood pressures for the most part have been above 100 systolic. RESPIRATORY: He has equal breath sounds. HEART: Regular rhythm. ABDOMEN: Soft. We turned down mechanical ventilation significantly this morning. I reviewed his CT with Dr. Chavez. He has a subpulmonic collection of fluid on the left, which most likely is blood, but given the recent fever, we elected to send him down for percutaneous drainage, so he was sedated and chemically paralyzed for that procedure. Procedure was done successfully. He did not want to leave a drain in for fear of it leading to infected pleural space. Few white cells were seen, no organisms were seen on Gram-stain. The fluid reportedly had the appearance of blood. There were over 1 million red cells, 8620 white cells, most were neutrophils; protein was 22 g, LDH was 12,000, glucose was less than 20, and amylase was less than 30. PH was 7.5. IMPRESSION: Hemothorax. With an unremarkable pH, I am really not sure what to do with the glucose of less than 20. Gram-stain was negative. I would think that if he had an empyema, we will be seeing something on the Gram-stain and the pH would have been low. The LDH is most likely from hemolyzed red cells. We will continue with mechanical ventilation working toward [facility] collar trials. Hemoglobin was 7.8 and platelets were 575. This is most likely reactive thrombocytosis. Electrolytes were unremarkable. Renal function continues to improve. Bilirubin is increasing; this will need to be monitored. I am sure he has some component of shock liver and some of his bilirubin is secondary to lysing of red blood cells. Job ID: [id number] [facility]
[2018-09-12 04:38] LABS: Anion Gap 13 mmol/L (10-20); BUN (Urea Nitrogen) 32 mg/dL (8.9-20.6); Band 27 % (5-11); Calc. Creatinine Clearance 75 mL/min (70-130); Calcium 8.5 mg/dL (7.8-10.44); Carbon Dioxide 24 mmol/L (22-29); Chloride 110 mmol/L (98-107); Eosinophils 2 % (0-10); Estimated GFR-MDRD 58; Glucose 151 mg/dL (70-105); Hemoglobin 9.5 g/dL (14.0-18.0); Lymphocytes 11 % (21-51); MDiff Complete? YES; Magnesium 1.7 mg/dL (1.6-2.6); Mean Corpuscular HGB CONC 32.4 g/dL (32.0-36.0); Mean Corpuscular Hemoglobin 30.2 pg (27.0-31.0); Mean Corpuscular Volume 93.3 fL (78.0-98.0); Mean Platelet Volume 8.5 fL (7.4-10.4); Metamyelocyte 1 % (0-0); Monocytes 12 % (0-10); Myelocyte 1 % (0-0); Neutrophil 45 % (42-75); Nucleated RBC 1 % (0); PLT Morphology Comment Appears Increased; Phosphorus 3.3 mg/dL (2.3-4.7); Platelet Count 817 thou/uL (130-400); Potassium 3.1 mmol/L (3.5-5.1); RBC Distribution Width 15.3 % (11.5-14.5); Red Blood Cell (RBC) Count 3.14 mill/uL (4.70-6.10); Sodium 144 mmol/L (136-145); White Blood Cell (WBC) Count 19.4 thou/uL (4.8-10.8)
[2018-09-12] MEDS: Acetaminophen 650 MG/20.3 ML UDCUP PO PRN ×2 (05:29→17:30)
[2018-09-12] MEDS: Dextrose 5% in Water 1,000 ML IV SCH (06:24)
[2018-09-12] MEDS: clonazePAM 0.5 MG TAB PO SCH ×2 (09:08→20:34)
[2018-09-12] MEDS: Famotidine/PF 20 mg/2ml Vial SLOW IVP SCH ×2 (09:08→20:34)
[2018-09-12] MEDS: Heparin 5,000 UNITS/ML VIAL SC SCH ×3 (09:08→20:34)
--- NOTE | 2018-09-12 12:57 | PRG ---
DATE OF SERVICE: 09/12/2018 SUBJECTIVE: Mr. Noguera is up in the neuro chair. He was much more awake earlier according to the nurse, now he is sleeping. OBJECTIVE: VITAL SIGNS: Blood pressure 96/66, pulse 91, and T-max 100.3. He has not been febrile since 09/09 at 0900 hours. Urine output remains adequate 1270 for the last shift. He had a bowel movement yesterday. Tube feeds were at 40. CHEST: Coarse breath sounds bilateral. HEART: Regular rate and rhythm. ABDOMEN: Soft, minimally tender, minimally distended. Midline wound VAC. LABORATORY DATA: White blood cell count is 19, hemoglobin 9.5, platelets are 817, he has 27 bands. Sodium 144, potassium 3.1, creatinine 1.41, and glucose 151. ASSESSMENT AND PLAN: Improving neurologically daily, much more awake now. He actually tried to mouth a sentence to his friend in his Lao language yesterday. More tired today, but certainly probably strenuous for him at this point to get to the neuro chair. Continue to attempt to get out of bed. Continue antibiotics. Await cultures on this left chest aspirate. Job ID: [id number]
[2018-09-12] MEDS: Ibuprofen 100 MG/5 ML UDCUP PO PRN (14:27)
--- NOTE | 2018-09-12 16:51 | PRG ---
DATE OF SERVICE: 09/12/2018 SUBJECTIVE: Pratik Noguera remains stable. OBJECTIVE: VITAL SIGNS: His oximetry is 100%. Blood pressure 103/62, heart rate is in the 90s, he is in sinus rhythm, respiratory rate is in the 20s. His temperature maximum is 100.9. GENERAL: He moves all four extremities. He makes eye contact. LUNGS: Clear. HEART: Regular rhythm. ABDOMEN: Soft. EXTREMITIES: Without asymmetry. Intake and output are positive 150. Cultures from the were negative thoracentesis fluid. ASSESSMENT AND PLAN: Given his low-grade ongoing temperature, I will ultrasound his legs to rule out a deep venous thrombosis. We will continue with current supportive care measures in the critical care unit. Critical care time 30 minutes. Job ID: [id number]
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
[2018-09-12] MEDS ORDERED: Lorazepam 2 MG/ML VIAL SLOW IVP PRN (17:55)
[2018-09-13 06:25] LABS: Anion Gap 13 mmol/L (10-20); BUN (Urea Nitrogen) 27 mg/dL (8.9-20.6); Calc. Creatinine Clearance 86 mL/min (70-130); Calcium 8.5 mg/dL (7.8-10.44); Carbon Dioxide 23 mmol/L (22-29); Chloride 110 mmol/L (98-107); Estimated GFR-MDRD 65; Glucose 148 mg/dL (70-105); Magnesium 1.6 mg/dL (1.6-2.6); Phosphorus 3.8 mg/dL (2.3-4.7); Potassium 3.1 mmol/L (3.5-5.1); Sodium 143 mmol/L (136-145)
[2018-09-13 06:26] LABS: Hemoglobin 9.8 g/dL (14.0-18.0); Hypochromia SLIGHT = 6-15 cells (100X) (0-5/hpf); Lymphocytes 12 % (21-51); MDiff Complete? YES; Mean Corpuscular HGB CONC 32.1 g/dL (32.0-36.0); Mean Corpuscular Hemoglobin 30.1 pg (27.0-31.0); Mean Corpuscular Volume 93.7 fL (78.0-98.0); Mean Platelet Volume 8.2 fL (7.4-10.4); Monocytes 5 % (0-10); Neutrophil 83 % (42-75); Nucleated RBC 1 % (0); PLT Morphology Comment Appears Increased; Platelet Count 848 thou/uL (130-400); RBC Distribution Width 15.4 % (11.5-14.5); Red Blood Cell (RBC) Count 3.24 mill/uL (4.70-6.10); White Blood Cell (WBC) Count 22.1 thou/uL (4.8-10.8)
[2018-09-13] MEDS ORDERED: Magnesium Sulfate 4 GM in Sodium Chloride 0.9% 250 ML 250 ML IVPB SCH (07:45)
[2018-09-13] MEDS ORDERED: Potassium Chloride 40 MEQ in Premix Bag 1 BAG IVPB SCH (07:45)
[2018-09-13] MEDS: Heparin 5,000 UNITS/ML VIAL SC SCH ×3 (08:01→20:55)
[2018-09-13] MEDS: Acetaminophen 650 MG/20.3 ML UDCUP PO PRN (08:01)
[2018-09-13] MEDS: clonazePAM 0.5 MG TAB PO SCH ×2 (08:02→20:55)
[2018-09-13] MEDS: Famotidine/PF 20 mg/2ml Vial SLOW IVP SCH ×2 (08:04→20:55)
[2018-09-13] MEDS: Dextrose 5% in Water 1,000 ML IV SCH ×2 (08:07→14:41)
[2018-09-13] MEDS ORDERED: Prevnar 13-Val Conj/PF 0.5 ML SYRINGE IM ONE (08:09)
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
[2018-09-13] MEDS ORDERED: Furosemide 20 MG/2 ML VIAL SLOW IVP SCH (14:30)
[2018-09-13] MEDS: Simethicone Chewable 80 MG TAB PO SCH ×2 (14:43→20:55)
[2018-09-13] MEDS ORDERED: fentaNYL 75 mcg/hour Patch TD SCH (15:00)
--- NOTE | 2018-09-13 15:27 | PRG ---
DATE OF SERVICE: 09/13/2018 SERVICE: Pulmonary Medicine. INTERVAL HISTORY: The patient is doing okay from a respiratory standpoint. This morning, he was down to 28% FiO2. He has put on a spontaneous breathing trial. He did well for about 2 hours, but ultimately, he became tachypneic and started head bobbing. Work of breathing was too high and he was subsequently returned to mechanical ventilation. He cannot provide any additional elements of the history. He is following some simple commands still. He attends. Outside of that, there has been no interval change to his condition. PHYSICAL EXAMINATION: VITAL SIGNS: T-max overnight of 101.9, but currently afebrile. Pulse 98, blood pressure 108/61, respirations 26, and saturation 99% on 35% FiO2 and a PEEP of 5. GENERAL: The patient is intubated. He is requiring the influence of some sedation. HEENT: Normocephalic and atraumatic. Sclerae white. Conjunctivae pink. Oral mucosa is moist without lesions. LUNGS: Rhonchi and crackles are present bilaterally. No prolonged expiratory phase or wheezing is appreciated. HEART: Normal rate, regular. ABDOMEN: Soft, nontender, and nondistended. Bowel sounds are positive. MUSCULOSKELETAL: No cyanosis or clubbing. There is no pitting in the bilateral lower extremities. NEUROLOGIC: Grossly nonfocal. LABORATORY DATA: WBC 22.1, hemoglobin 9.8, platelets 848,000. All culture results remain negative today. IMAGING STUDIES: Ultrasound of the bilateral lower extremities demonstrates no evidence for a DVT. His chest x-ray demonstrates consolidation in bibasilar regions. Tracheostomy tube is in good position. ASSESSMENT: 1. Acute hypoxic respiratory failure. 2. Severe sepsis. 3. Healthcare-associated pneumonia secondary to Enterobacter aerogenes. 4. Pulseless electrical activity, status post return of circulation. 5. Hemorrhagic shock, resolved. 6. Acute blood loss anemia, stable. 7. Anoxic brain injury with returning neurologic function. DISCUSSION AND PLAN: Because of the abdominal distention, we will continue his simethicone. We will continue to diurese the patient to euvolemia. His sodium has much improved to 143. We will continue our potassium replacement. Pulmonary Critical Care will continue to follow along while the patient remains inhouse. Critical care time: 30 minutes. Job ID: [id number] [facility]
[2018-09-13] MEDS: Ibuprofen 100 MG/5 ML UDCUP PO PRN (16:58)
[2018-09-14] MEDS: Acetaminophen 650 MG/20.3 ML UDCUP PO PRN (04:16)
[2018-09-14] MEDS: clonazePAM 0.5 MG TAB PO SCH ×2 (08:51→21:54)
[2018-09-14] MEDS: Heparin 5,000 UNITS/ML VIAL SC SCH ×3 (08:52→21:54)
[2018-09-14] MEDS: Famotidine/PF 20 mg/2ml Vial SLOW IVP SCH ×2 (08:52→21:54)
[2018-09-14] MEDS: Simethicone Chewable 80 MG TAB PO SCH ×3 (08:53→21:00)
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
[2018-09-14 10:16] LABS: Anion Gap 15 mmol/L (10-20); BUN (Urea Nitrogen) 19 mg/dL (8.9-20.6); Calc. Creatinine Clearance 100 mL/min (70-130); Calcium 8.3 mg/dL (7.8-10.44); Carbon Dioxide 22 mmol/L (22-29); Chloride 109 mmol/L (98-107); Estimated GFR-MDRD 77; Glucose 149 mg/dL (70-105); Magnesium 1.8 mg/dL (1.6-2.6); Phosphorus 3.1 mg/dL (2.3-4.7); Potassium 3.7 mmol/L (3.5-5.1); Sodium 142 mmol/L (136-145)
[2018-09-14 10:37] LABS: Band 8 % (5-11); Hemoglobin 9.3 g/dL (14.0-18.0); Hypochromia SLIGHT = 6-15 cells (100X) (0-5/hpf); Large Platelets SLIGHT; Lymphocytes 10 % (21-51); MDiff Complete? YES; Mean Corpuscular Hemoglobin 29.1 pg (27.0-31.0); Mean Platelet Volume 8.4 fL (7.4-10.4); Metamyelocyte 1 % (0-0); Monocytes 10 % (0-10); Myelocyte 5 % (0-0); Neutrophil 65 % (42-75); Nucleated RBC 1 % (0); PLT Morphology Comment Appears Increased; Platelet Count 861 thou/uL (130-400); Polychromasia MODERATE = 3-4 cells (100X) (0-2/hpf); RBC Distribution Width 15.5 % (11.5-14.5); Reactive Lymphocytes 1 % (0-10); Red Blood Cell (RBC) Count 3.21 mill/uL (4.70-6.10); White Blood Cell (WBC) Count 19.7 thou/uL (4.8-10.8)
[2018-09-14] MEDS: Dextrose 5% in Water 1,000 ML IV SCH (12:41)
[2018-09-14] MEDS ORDERED: Magnesium 2 GM/50 ML 2 GM in Premix Bag 1 BAG IVPB SCH (13:45)
--- NOTE | 2018-09-14 13:56 | PRG ---
DATE OF SERVICE: 09/14/2018 SERVICE: Pulmonary Medicine. INTERVAL HISTORY: The patient is doing fine from respiratory standpoint. He is breathing comfortably. He is following some simple commands. He is trying to speak almost continuously whenever he is awake. Otherwise, there has been no interval change to his condition. PHYSICAL EXAMINATION: VITAL SIGNS: Afebrile, currently with a T-max of 103.1, pulse 99, blood pressure 125/65, respirations 36, saturation 97% on 29% FiO2. GENERAL: The patient is requiring a little bit of sedation. He is following some simple commands. He looks to be in no distress. HEENT: Normocephalic and atraumatic. Sclerae white. Conjunctivae pink. Oral mucosa is moist without lesions. LUNGS: Decent air entry. Rhonchi are present. There is minimal dependent crackling. No prolonged expiratory phase or wheezing is appreciated. HEART: Normal rate, regular. ABDOMEN: Soft, nontender, and nondistended. Bowel sounds are positive. MUSCULOSKELETAL: No cyanosis or clubbing. There is no pitting in the bilateral lower extremities. NEUROLOGIC: Grossly nonfocal. LABORATORY DATA: WBC 19.7, hemoglobin 9.3, platelets 862,000. Band count is dropping off slightly. INR 1.5. Potassium 3.7, magnesium 1.8. Phosphorus falls within the normal limits. Basic metabolic profile is otherwise unremarkable. Urinalysis is negative. All culture results remain negative to date. The last thing that we cultured was from the . At that point, we isolated Enterobacter aerogenes, for which he is on appropriate antibiotic. IMAGING STUDIES: Chest x-ray demonstrates left-sided pleural parenchymal disease. No significant interval change. ASSESSMENT: 1. Acute hypoxic respiratory failure, slowly improving. 2. Severe sepsis, with recurring SIRS criteria. 3. Healthcare-associated pneumonia secondary to Enterobacter aerogenes, status post full course of antibiotics. 4. Pulseless electrical activity, status post return of circulation. 5. Hemorrhagic shock, resolved. 6. Acute blood loss anemia, stable. 7. Anoxic brain injury with returning function. DISCUSSION AND PLAN: We will replace potassium and magnesium. I will give him a laboratory holiday tomorrow. We will continue to wean the ventilator away as tolerated. We will continue our mobilization efforts. Pulmonary/Critical Care will continue to follow along. CRITICAL CARE TIME: 30 minutes. Job ID: [id number] [facility]
--- NOTE | 2018-09-14 15:10 | PRG ---
DATE OF SERVICE: 09/14/2018 SUBJECTIVE: Mr. Noguera is doing well. He is awake, alert, getting up to the chair. He still having temperatures up to 103 this morning. His urine output remains good. SUBJECTIVE: CHEST: Coarse breath sounds, especially on the left. HEART: Increased rate, regular rhythm. ABDOMEN: Soft, nondistended. LABORATORY DATA: His white blood cell count is down to 19, hemoglobin 9, platelet count is 861. No bands today. Creatinine today is 1.11. Growth of thoracentesis fluid is negative thus far. ASSESSMENT: Slow improvement. Still needing vent at times. Tolerating tube feeds. There was a question again of leakage around the G-tube. PLAN: We will re-evaluate the G-tube with contrast study if the drainage around persist. Job ID: [id number]
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
[2018-09-14] MEDS ORDERED: fentaNYL 50 mcg/hour Patch TD SCH (21:00)
[2018-09-14] MEDS: Senokot S 8.6-50 MG TAB PO SCH (21:00)
[2018-09-15] MEDS ORDERED: Acthib 0.5 ML VIAL IM ONE (09:43)
[2018-09-15 10:22] LABS: Fungus Stain Final report (.)
--- NOTE | 2018-09-15 10:39 | PRG ---
DATE OF SERVICE: 09/15/2018 SERVICE: Pulmonary Medicine. INTERVAL HISTORY: The patient is doing well from a respiratory standpoint. He is breathing comfortably. He is on / with pressure support ventilation. His FiO2 has been weaned down to 27%. There has been no interval change to his condition. Otherwise, he cannot provide any additional elements of the history. He is having some intermittent fevers. That being said, the fever profile seems to be improving ever so slightly. His last high temperature was 103 degrees on the morning of the . PHYSICAL EXAMINATION: VITAL SIGNS: Afebrile currently. Pulse 86, blood pressure 125/66, respirations 29, saturation 96% on 27% FiO2 and a PEEP of 5. GENERAL: The patient is awake and alert. He is breathing comfortably with mechanical ventilator. HEENT: Normocephalic and atraumatic. Sclerae white. Conjunctivae pink. Oral mucosa is moist without lesions. LUNGS: Decent air entry. Rhonchi and crackles are present. There is no prolonged expiratory phase. No wheezing. HEART: Normal rate, regular. ABDOMEN: Soft, nontender, and nondistended. Bowel sounds are positive. MUSCULOSKELETAL: No cyanosis or clubbing. There is no pitting in the bilateral lower extremities. NEUROLOGIC: Grossly nonfocal. IMAGING: KUB demonstrates contrast in the stomach refluxing up into the esophagus. There is a significant bowel gas present. ASSESSMENT: 1. Acute hypoxic respiratory failure. 2. Systemic inflammatory response syndrome. 3. Healthcare-associated pneumonia secondary to Enterobacter aerogenes, status post full course of antibiotic. 4. Pulseless electrical activity, status post return of circulation. 5. Hemorrhagic shock, resolved. 6. Acute blood loss anemia, stable. 7. Anoxic brain injury, with returning neurologic function. DISCUSSION AND PLAN: We will repeat our laboratories tomorrow morning as well as a chest x-ray. We will continue T-collar trials three times daily in our mobilization efforts. He will continue to work with Physical Therapy and occupational Therapy. Hopefully, he will continue to make good neurologic recovery. Critical care time: 30 minutes. Job ID: [id number] [facility]
[2018-09-15] MEDS: clonazePAM 0.5 MG TAB PO SCH ×2 (11:11→21:08)
[2018-09-15] MEDS: Simethicone Chewable 80 MG TAB PO SCH (11:12)
[2018-09-15] MEDS: Polyethylene Glycol 3350 17 GM Packet PER TUBE SCH (11:12)
[2018-09-15] MEDS: Senokot S 8.6-50 MG TAB PO SCH ×2 (11:12→19:47)
[2018-09-15] MEDS: Heparin 5,000 UNITS/ML VIAL SC SCH ×3 (11:13→21:08)
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
[2018-09-15] MEDS: Famotidine 40 MG/5 ML Oral Suspension PO SCH (21:08)
[2018-09-15] MEDS: Ondansetron ODT 4 MG TAB PO PRN (21:18)
[2018-09-15] MEDS: Acetaminophen 650 MG/20.3 ML UDCUP PO PRN (21:18)
[2018-09-16] MEDS: Ibuprofen 100 MG/5 ML UDCUP PO PRN (04:21)
[2018-09-16 04:57] LABS: Hemoglobin 10.8 g/dL (14.0-18.0); Mean Corpuscular HGB CONC 31.2 g/dL (32.0-36.0); Mean Corpuscular Hemoglobin 30.1 pg (27.0-31.0); Mean Corpuscular Volume 96.5 fL (78.0-98.0); Mean Platelet Volume 8.6 fL (7.4-10.4); Platelet Count 826 thou/uL (130-400); RBC Distribution Width 15.9 % (11.5-14.5); Red Blood Cell (RBC) Count 3.59 mill/uL (4.70-6.10); White Blood Cell (WBC) Count 22.9 thou/uL (4.8-10.8)
[2018-09-16 05:15] LABS: Phosphorus 4.9 mg/dL (2.3-4.7)
[2018-09-16 05:16] LABS: Anion Gap 16 mmol/L (10-20); BUN (Urea Nitrogen) 18 mg/dL (8.9-20.6); Calc. Creatinine Clearance 97 mL/min (70-130); Calcium 8.6 mg/dL (7.8-10.44); Carbon Dioxide 24 mmol/L (22-29); Chloride 107 mmol/L (98-107); Estimated GFR-MDRD 83; Glucose 110 mg/dL (70-105); Magnesium 2.1 mg/dL (1.6-2.6); Potassium 3.6 mmol/L (3.5-5.1); Sodium 143 mmol/L (136-145)
[2018-09-16 05:18] LABS: Band 25 % (5-11); Eosinophils 2 % (0-10); Lymphocytes 14 % (21-51); MDiff Complete? YES; Metamyelocyte 1 % (0-0); Monocytes 5 % (0-10); Neutrophil 53 % (42-75); PLT Morphology Comment Appears Increased
[2018-09-16 05:19] LABS: ALT (SGPT) 101 U/L (8-55); AST (SGOT) 139 U/L (5-34); Albumin 3.1 g/dL (3.5-5.0); Alkaline Phosphatase 132 U/L (40-150); Bilirubin, Direct 2.6 mg/dL (0.1-0.3); Bilirubin, Total 3.7 mg/dL (0.2-1.2); LDH 1103 U/L (125-220)
[2018-09-16] MEDS: Polyethylene Glycol 3350 17 GM Packet PER TUBE SCH (09:33)
[2018-09-16] MEDS: clonazePAM 0.5 MG TAB PO SCH ×2 (09:33→20:54)
[2018-09-16] MEDS: Senokot S 8.6-50 MG TAB PO SCH ×2 (09:33→20:55)
[2018-09-16] MEDS: Heparin 5,000 UNITS/ML VIAL SC SCH ×3 (09:34→20:54)
[2018-09-16] MEDS: Famotidine 40 MG/5 ML Oral Suspension PO SCH ×2 (09:35→20:55)
[2018-09-16] MEDS ORDERED: Meningococcal Vaccine 0.5ML VIAL (MENACTRA) IM ONE (09:43)
--- NOTE | 2018-09-16 11:06 | PRG ---
DATE OF SERVICE: 09/16/2018 SERVICE: Pulmonary Medicine. INTERVAL HISTORY: The patient is tolerating T-collar. There has been no interval change to his condition. He cannot provide any additional elements of the history at this point. He is following commands. He is a little bit slow, but his mentation is firming up slowly through time. PHYSICAL EXAMINATION: VITAL SIGNS: Afebrile overnight. His last temperature was 4 o'clock in the morning on the , which was 101.5. Pulse 82, blood pressure 104/72, respirations 22 , and saturation 98% on T-collar. GENERAL: The patient is awake and alert, in no apparent distress. LUNGS: Decent air entry. Rhonchi are present throughout bilateral lung aguilera. They are quite extensive and mostly transmitted from upper airways. HEART: Normal rate, regular. ABDOMEN: Soft, nontender, and nondistended. Bowel sounds are positive. MUSCULOSKELETAL: No cyanosis or clubbing. There is no pitting in the bilateral lower extremities. NEUROLOGIC: Grossly nonfocal. LABORATORY DATA: WBC 22.9, hemoglobin 10.8, and platelets 826,000. Band count has increased to 25% on top of 53% neutrophils. Basic metabolic profile is essentially unremarkable except for potassium of 3.6. Creatinine continues to improve to 1.4, magnesium 2.1, and phosphorus 4.9. AST and ALT are gently uptrending, lactate dehydrogenase remains quite elevated at 1100. All culture results are negative to-date. ASSESSMENT: 1. Acute hypoxic respiratory failure, slowly improving. 2. Systemic inflammatory response syndrome. 3. Healthcare-associated pneumonia, status post full course of antibiotics. 4. Pulseless electrical activity, status post return of circulation. 5. Hemorrhagic shock, resolved. 6. Acute blood loss anemia, stable. 7. Anoxic brain injury with slowly returning neurologic function. DISCUSSION AND PLAN: We will continue our mobilization efforts. I will give him a dose of potassium today. Once again, we will reintroduce a holiday from laboratories tomorrow. Since, he is several days out from the tracheostomy, we can downsize him to 6.0 fenestrated trach. Job ID: [id number] [facility]
[2018-09-16] MEDS ORDERED: Metoclopramide HCl 10 MG TAB PO PRN (15:47)
[2018-09-16] MEDS: Meropenem 2 GM in Sodium Chloride 0.9% 100 ML IVPB SCH (17:10)
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
[2018-09-16] MEDS: Acetaminophen 650 MG/20.3 ML UDCUP PO PRN (20:54)
[2018-09-16] MEDS: Ondansetron ODT 4 MG TAB PO PRN (20:54)
[2018-09-17] MEDS: Meropenem 2 GM in Sodium Chloride 0.9% 100 ML IVPB SCH ×3 (02:04→16:16)
[2018-09-17] MEDS: Ondansetron ODT 4 MG TAB PO PRN (04:57)
[2018-09-17] MEDS: Acetaminophen 650 MG/20.3 ML UDCUP PO PRN ×2 (04:57→20:26)
[2018-09-17] MEDS: Senokot S 8.6-50 MG TAB PO SCH ×2 (08:22→20:18)
[2018-09-17] MEDS: Polyethylene Glycol 3350 17 GM Packet PER TUBE SCH (08:22)
[2018-09-17] MEDS: Heparin 5,000 UNITS/ML VIAL SC SCH ×3 (08:22→20:17)
[2018-09-17] MEDS: Famotidine 40 MG/5 ML Oral Suspension PO SCH ×2 (08:22→20:19)
[2018-09-17 09:40] LABS: Hemoglobin 10.9 g/dL (14.0-18.0); Mean Corpuscular HGB CONC 31.7 g/dL (32.0-36.0); Mean Corpuscular Hemoglobin 30.1 pg (27.0-31.0); Mean Corpuscular Volume 95.1 fL (78.0-98.0); Mean Platelet Volume 8.4 fL (7.4-10.4); Platelet Count 849 thou/uL (130-400); RBC Distribution Width 15.9 % (11.5-14.5); Red Blood Cell (RBC) Count 3.63 mill/uL (4.70-6.10); White Blood Cell (WBC) Count 21.5 thou/uL (4.8-10.8)
[2018-09-17] MEDS ORDERED: Linezolid 600 MG TAB PO SCH (09:45)
[2018-09-17 10:04] LABS: Anion Gap 13 mmol/L (10-20); BUN (Urea Nitrogen) 16 mg/dL (8.9-20.6); Calc. Creatinine Clearance 119 mL/min (70-130); Calcium 8.7 mg/dL (7.8-10.44); Carbon Dioxide 25 mmol/L (22-29); Chloride 106 mmol/L (98-107); Estimated GFR-MDRD Greater than 90; Glucose 107 mg/dL (70-105); Magnesium 1.9 mg/dL (1.6-2.6); Phosphorus 3.1 mg/dL (2.3-4.7); Potassium 3.3 mmol/L (3.5-5.1); Sodium 141 mmol/L (136-145)
--- NOTE | 2018-09-17 10:05 | PRG ---
DATE OF SERVICE: 09/17/2018 SERVICE: Pulmonary Medicine. INTERVAL HISTORY: The patient did okay from respiratory standpoint overnight. Yesterday in the afternoon, he had increasing work of breathing associated with a fever of 103. He was pancultured. We empirically started antibiotics up again. Otherwise, there has been no interval change to his condition. PHYSICAL EXAMINATION: VITAL SIGNS: Currently afebrile. As previously noted, T-max 103.3. Pulse 116, blood pressure 114/87, respirations 21, and saturation 100% on 28% FiO2 via T-collar. HEENT: Normocephalic and atraumatic. Sclerae white. Conjunctivae pink. Oral mucosa is moist without lesions. LUNGS: Rhonchi are present. No prolonged expiratory phase or wheezing is appreciated. HEART: Normal rate and regular. ABDOMEN: Soft, nontender, and nondistended. Bowel sounds are positive. MUSCULOSKELETAL: No cyanosis or clubbing. No pitting in the bilateral lower extremities. NEUROLOGIC: Grossly nonfocal. He is moving all 4 extremities. That being said, he only intermittently follows command still. LABORATORY DATA: C. diff antigen and toxin collected yesterday were negative. Urine culture, blood cultures x2 are negative to date. Respiratory cultures also unremarkable. There were few gram positive cocci in clusters and pairs. ASSESSMENT: 1. Acute hypoxic respiratory failure, improving. 2. Systemic inflammatory response syndrome. 3. Healthcare-associated pneumonia, status post full course of antibiotics. 4. Pulseless electrical activity, status post return of circulation. 5. Hemorrhagic shock, resolved. 6. Acute blood loss anemia, stable. 7. Anoxic brain injury, with slowly improving neurologic function. DISCUSSION AND PLAN: We will continue our mobilization efforts. I will add something that is active against MRSA. Pulmonary/Critical Care will continue to follow along. My plan is to downsize him on Thursday if he remains off pressure support ventilation through the weekend. Pulmonary/Critical Care will continue to follow closely. Job ID: [id number]
[2018-09-17 10:28] LABS: #Basophils 0.1 thou/uL (0.0-0.2); #Eosinphils 0.2 thou/uL (0.0-0.7); #Lymphocytes 2.5 thou/uL (1.20-3.40); #Monocytes 2.3 thou/uL (0.11-0.59); #Neutrophils 16.5 thou/uL (1.40-6.50); %Basophils 0.3 % (0.0-1.0); %Lymphocytes 11.6 % (21.0-51.0); %Monocytes 10.4 % (0.0-10.0); %Neutrophils 76.6 % (42.0-75.0); Band 12 % (5-11); Eosinophils 3 % (0-10); Lymphocytes 11 % (21-51); MDiff Complete? YES; Metamyelocyte 1 % (0-0); Monocytes 9 % (0-10); Neutrophil 64 % (42-75); PLT Morphology Comment Appears Increased; Polychromasia MODERATE = 3-4 cells (100X) (0-2/hpf); Target Cells SLIGHT = 2-5 cells (100X) (0-1/hpf)
[2018-09-17] MEDS ORDERED: Magnesium 2 GM/50 ML 2 GM in Premix Bag 1 BAG IVPB SCH (11:30)
[2018-09-17] MEDS ORDERED: Potassium Chloride 40 MEQ in Sodium Chloride 0.9% 250 ML 250 ML IVPB SCH (12:00)
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
[2018-09-17] MEDS: clonazePAM 0.5 MG TAB PO SCH (20:27)
[2018-09-17] MEDS: Linezolid 600 MG TAB PO SCH (20:31)
[2018-09-17] MEDS ORDERED: fentaNYL 50 mcg/hour Patch TD SCH (21:00)
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
[2018-09-18] MEDS: Meropenem 2 GM in Sodium Chloride 0.9% 100 ML IVPB SCH ×3 (01:49→16:12)
[2018-09-18] MEDS: Polyethylene Glycol 3350 17 GM Packet PER TUBE SCH (07:59)
[2018-09-18] MEDS: Senokot S 8.6-50 MG TAB PO SCH ×2 (07:59→21:40)
[2018-09-18] MEDS: Acetaminophen 650 MG/20.3 ML UDCUP PO PRN ×2 (08:01→15:13)
[2018-09-18] MEDS: Linezolid 600 MG TAB PO SCH ×2 (08:01→21:39)
[2018-09-18] MEDS: Heparin 5,000 UNITS/ML VIAL SC SCH ×3 (08:06→21:39)
[2018-09-18 09:02] LABS: Hemoglobin 11.5 g/dL (14.0-18.0); Mean Corpuscular HGB CONC 31.5 g/dL (32.0-36.0); Mean Corpuscular Hemoglobin 30.2 pg (27.0-31.0); Mean Corpuscular Volume 95.9 fL (78.0-98.0); Mean Platelet Volume 8.4 fL (7.4-10.4); Platelet Count 912 thou/uL (130-400); RBC Distribution Width 15.9 % (11.5-14.5); Red Blood Cell (RBC) Count 3.79 mill/uL (4.70-6.10); White Blood Cell (WBC) Count 20.5 thou/uL (4.8-10.8)
[2018-09-18 09:18] LABS: Anion Gap 12 mmol/L (10-20); BUN (Urea Nitrogen) 15 mg/dL (8.9-20.6); Calc. Creatinine Clearance 111 mL/min (70-130); Calcium 8.7 mg/dL (7.8-10.44); Carbon Dioxide 28 mmol/L (22-29); Chloride 110 mmol/L (98-107); Estimated GFR-MDRD 90; Glucose 134 mg/dL (70-105); Magnesium 1.7 mg/dL (1.6-2.6); Phosphorus 2.7 mg/dL (2.3-4.7); Potassium 3.2 mmol/L (3.5-5.1); Sodium 147 mmol/L (136-145)
[2018-09-18 09:19] LABS: Anisocytosis SLIGHT = 6-15 cells (100X) (0-5/hpf); Band 8 % (5-11); Lymphocytes 11 % (21-51); MDiff Complete? YES; Monocytes 8 % (0-10); Neutrophil 73 % (42-75); PLT Morphology Comment Appears Increased
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
[2018-09-18] MEDS: Famotidine 40 MG/5 ML Oral Suspension PO SCH ×2 (10:23→21:38)
[2018-09-18] MEDS: Aspirin 325 MG TAB PO SCH (10:23)
[2018-09-18] MEDS: Metoclopramide HCl 10 MG TAB PO SCH ×2 (10:24→21:38)
[2018-09-18] MEDS ORDERED: Potassium Chloride 40 MEQ in Sodium Chloride 0.9% 250 ML 250 ML IVPB SCH (17:30)
[2018-09-18] MEDS ORDERED: Magnesium Sulfate 3 GM in Sodium Chloride 0.9% 100 ML IVPB SCH (18:00)
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
[2018-09-18] MEDS: clonazePAM 0.5 MG TAB PO SCH (21:38)
[2018-09-19] MEDS: Meropenem 2 GM in Sodium Chloride 0.9% 100 ML IVPB SCH ×3 (01:09→16:00)
[2018-09-19] MEDS: Famotidine/PF 20 mg/2ml Vial SLOW IVP SCH (01:15)
[2018-09-19] MEDS: Metoclopramide HCl 10 MG TAB PO SCH ×3 (05:07→21:02)
[2018-09-19 05:25] LABS: ALT (SGPT) 70 U/L (8-55); AST (SGOT) 70 U/L (5-34); Albumin 3.2 g/dL (3.5-5.0); Alkaline Phosphatase 132 U/L (40-150); Anion Gap 11 mmol/L (10-20); BUN (Urea Nitrogen) 12 mg/dL (8.9-20.6); Bilirubin, Total 2.6 mg/dL (0.2-1.2); Calc. Creatinine Clearance 114 mL/min (70-130); Calcium 8.7 mg/dL (7.8-10.44); Carbon Dioxide 28 mmol/L (22-29); Chloride 113 mmol/L (98-107); Estimated GFR-MDRD Greater than 90; Globulin 5.1 g/dL (2.4-3.5); Glucose 136 mg/dL (70-105); Potassium 3.4 mmol/L (3.5-5.1); Protein, Total 8.3 g/dL (6.0-8.3); Sodium 149 mmol/L (136-145)
[2018-09-19] MEDS: Linezolid 600 MG TAB PO SCH ×2 (09:07→21:02)
[2018-09-19] MEDS: Acetaminophen 650 MG/20.3 ML UDCUP PO PRN ×2 (09:07→16:13)
[2018-09-19] MEDS: Senokot S 8.6-50 MG TAB PO SCH ×2 (09:07→21:01)
[2018-09-19] MEDS: Polyethylene Glycol 3350 17 GM Packet PER TUBE SCH (09:07)
[2018-09-19] MEDS: Aspirin 325 MG TAB PO SCH (09:08)
[2018-09-19] MEDS: Heparin 5,000 UNITS/ML VIAL SC SCH ×3 (09:13→21:03)
[2018-09-19] MEDS: Famotidine 40 MG/5 ML Oral Suspension PO SCH ×2 (09:29→21:02)
[2018-09-19 09:58] LABS: Magnesium 2.1 mg/dL (1.6-2.6); Phosphorus 2.4 mg/dL (2.3-4.7)
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
[2018-09-19] MEDS: Ondansetron PF 4 MG/2 ML Vial IVP PRN (10:42)
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
[2018-09-19] MEDS: clonazePAM 0.5 MG TAB PO SCH (21:01)
[2018-09-20] MEDS: Meropenem 2 GM in Sodium Chloride 0.9% 100 ML IVPB SCH ×3 (00:34→17:05)
[2018-09-20] MEDS: Metoclopramide HCl 10 MG TAB PO SCH ×2 (03:16→11:35)
[2018-09-20] MEDS: Acetaminophen 650 MG/20.3 ML UDCUP PO PRN ×2 (03:16→15:13)
[2018-09-20 05:10] LABS: Anion Gap 14 mmol/L (10-20); BUN (Urea Nitrogen) 14 mg/dL (8.9-20.6); Calc. Creatinine Clearance 119 mL/min (70-130); Calcium 8.7 mg/dL (7.8-10.44); Carbon Dioxide 24 mmol/L (22-29); Chloride 111 mmol/L (98-107); Estimated GFR-MDRD Greater than 90; Glucose 117 mg/dL (70-105); Phosphorus 2.6 mg/dL (2.3-4.7); Potassium 3.9 mmol/L (3.5-5.1); Sodium 145 mmol/L (136-145)
[2018-09-20 05:34] LABS: Band 6 % (5-11); Eosinophils 1 % (0-10); Hemoglobin 11.2 g/dL (14.0-18.0); Lymphocytes 16 % (21-51); MDiff Complete? YES; Mean Corpuscular HGB CONC 31.1 g/dL (32.0-36.0); Mean Corpuscular Hemoglobin 29.9 pg (27.0-31.0); Mean Corpuscular Volume 96.3 fL (78.0-98.0); Mean Platelet Volume 9.2 fL (7.4-10.4); Monocytes 8 % (0-10); Neutrophil 69 % (42-75); PLT Morphology Comment Appears Increased; Platelet Count 828 thou/uL (130-400); RBC Distribution Width 15.6 % (11.5-14.5); Red Blood Cell (RBC) Count 3.73 mill/uL (4.70-6.10)
[2018-09-20] MEDS: Heparin 5,000 UNITS/ML VIAL SC SCH ×3 (10:16→20:36)
[2018-09-20] MEDS: Linezolid 600 MG TAB PO SCH ×2 (10:16→20:34)
[2018-09-20] MEDS: Famotidine 40 MG/5 ML Oral Suspension PO SCH ×2 (10:16→20:35)
[2018-09-20] MEDS: Aspirin 325 MG TAB PO SCH (10:16)
[2018-09-20] MEDS: Polyethylene Glycol 3350 17 GM Packet PER TUBE SCH (10:17)
[2018-09-20] MEDS: Senokot S 8.6-50 MG TAB PO SCH ×2 (10:17→20:36)
[2018-09-20] MEDS ORDERED: Metoclopramide HCl 10 MG TAB PO PRN (13:59)
--- NOTE | 2018-09-20 14:53 | PRG ---
DATE OF SERVICE: 09/20/2018 SERVICE: Pulmonary Medicine. INTERVAL HISTORY: The patient is actually speaking to me today. He does not have any specific complaints. There has been no interval change to his condition, otherwise. He cannot provide any additional elements of the history at this point. That being said, he got a little agitated this morning, reached up and removed his tracheostomy. We actually downsized him as a result of this. PHYSICAL EXAMINATION: VITAL SIGNS: Afebrile currently, his last temperature was on the 17 of September; pulse 112; blood pressure 109/93, respirations 25; and saturation 100% on T-collar getting 28% FiO2. HEENT: Normocephalic and atraumatic. Sclerae are white. Conjunctivae are pink. Oral and nasal mucosa is moist without lesions. LUNGS: Excellent air entry. Rhonchi are present, predominate on the left. HEART: Normal rate, regular. ABDOMEN: Soft, nontender, and nondistended. Bowel sounds are positive. MUSCULOSKELETAL: No cyanosis or clubbing. There is no pitting in bilateral lower extremities. NEUROLOGIC: Grossly nonfocal. LABORATORY DATA: WBC 18.0, hemoglobin 11.2, and platelets 828,000. Basic metabolic profile is essentially unremarkable. Magnesium and phosphorous fall within the normal limits. Urinalysis is negative. All culture results remain negative. We repeated the C difficile antigen and toxin, which was negative. ASSESSMENT: 1. Acute hypoxic respiratory failure, improving. 2. Systemic inflammatory response syndrome, on empiric meropenem. 3. Healthcare-associated pneumonia, status post full course of antibiotic previously. 4. Pulseless electrical activity, status post return of circulation. 5. Hemorrhagic shock, resolved. 6. Acute blood loss anemia, stable. 7. Anoxic brain injury, slowly recovering. DISCUSSION AND PLAN: We will continue to pursue our mobilization efforts through time. From my perspective, the patient is stable for transition out of the hospital. I will give him a laboratory holiday tomorrow morning. Ultimately, he cannot go home yet. After 5 days, if we do not catch anything with the cultures that we previously obtained, we will consider getting rid of his linezolid and meropenem. I will drop his fentanyl patch, and his dose of Seroquel at night. Job ID: [id number]
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
[2018-09-20] MEDS: Tamsulosin HCl 0.4 MG CAP PO SCH (20:36)
[2018-09-20] MEDS: clonazePAM 0.5 MG TAB PO SCH (20:36)
[2018-09-21] MEDS: Meropenem 2 GM in Sodium Chloride 0.9% 100 ML IVPB SCH ×3 (00:40→17:15)
[2018-09-21] MEDS: Famotidine 40 MG/5 ML Oral Suspension PO SCH ×2 (09:36→20:32)
[2018-09-21] MEDS: Linezolid 600 MG TAB PO SCH ×2 (09:36→20:32)
[2018-09-21] MEDS: Heparin 5,000 UNITS/ML VIAL SC SCH ×3 (09:36→20:32)
[2018-09-21] MEDS: Aspirin 325 MG TAB PO SCH (09:36)
[2018-09-21] MEDS: Polyethylene Glycol 3350 17 GM Packet PER TUBE SCH (09:37)
[2018-09-21] MEDS: Senokot S 8.6-50 MG TAB PO SCH ×2 (09:37→20:32)
[2018-09-21] MEDS: Tamsulosin HCl 0.4 MG CAP PO SCH ×2 (09:38→20:33)
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
[2018-09-21] MEDS: clonazePAM 0.5 MG TAB PO SCH (20:31)
[2018-09-21] MEDS: Ondansetron ODT 4 MG TAB PO PRN (20:32)
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
[2018-09-22] MEDS: Meropenem 2 GM in Sodium Chloride 0.9% 100 ML IVPB SCH ×3 (01:04→18:55)
[2018-09-22 04:51] LABS: #Basophils 0.1 thou/uL (0.0-0.2); #Eosinphils 0.2 thou/uL (0.0-0.7); #Lymphocytes 3.3 thou/uL (1.20-3.40); #Monocytes 1.5 thou/uL (0.11-0.59); #Neutrophils 12.6 thou/uL (1.40-6.50); %Basophils 0.6 % (0.0-1.0); %Eosinophils 1.1 % (0.0-10.0); %Lymphocytes 18.8 % (21.0-51.0); %Monocytes 8.5 % (0.0-10.0); %Neutrophils 71.1 % (42.0-75.0); Hemoglobin 12.5 g/dL (14.0-18.0); Mean Corpuscular HGB CONC 31.6 g/dL (32.0-36.0); Mean Corpuscular Hemoglobin 29.8 pg (27.0-31.0); Mean Corpuscular Volume 94.2 fL (78.0-98.0); Mean Platelet Volume 8.6 fL (7.4-10.4); Platelet Count 871 thou/uL (130-400); RBC Distribution Width 15.5 % (11.5-14.5); White Blood Cell (WBC) Count 17.7 thou/uL (4.8-10.8)
[2018-09-22] MEDS: Polyethylene Glycol 3350 17 GM Packet PER TUBE SCH (09:02)
[2018-09-22] MEDS: Heparin 5,000 UNITS/ML VIAL SC SCH ×3 (09:02→21:14)
[2018-09-22] MEDS: Aspirin 325 MG TAB PO SCH (09:03)
[2018-09-22] MEDS: Famotidine 40 MG/5 ML Oral Suspension PO SCH (09:03)
[2018-09-22] MEDS: Tamsulosin HCl 0.4 MG CAP PO SCH (09:03)
[2018-09-22] MEDS: Linezolid 600 MG TAB PO SCH ×2 (09:03→21:15)
[2018-09-22] MEDS: Senokot S 8.6-50 MG TAB PO SCH ×2 (09:03→21:15)
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
--- NOTE | 2018-09-22 14:42 | PRG ---
DATE OF SERVICE: 09/22/2018 SERVICE: Pulmonary Medicine. INTERVAL HISTORY: The patient is doing fine from a respiratory standpoint. He is breathing comfortably. There has been no interval change to his condition. He has tracheostomy in place. He has been afebrile for the last 24 hours. His strength continues to improve. PHYSICAL EXAMINATION: VITAL SIGNS: Afebrile. His last temperature was on 18 of September. Pulse 115, blood pressure 103/73, respirations 19, and saturations 96% on trach collar. HEENT: Normocephalic and atraumatic. Sclerae white. Conjunctivae pink. Oral mucosa is moist without lesions. LUNGS: Excellent air entry. There is no prolonged expiratory phase or wheezing present. HEART: Normal rate, regular. ABDOMEN: Soft, nontender, and nondistended. Bowel sounds are positive. MUSCULOSKELETAL: No cyanosis or clubbing. There is no pitting in the bilateral lower extremities. NEUROLOGIC: Grossly nonfocal. LABORATORY DATA: WBC 17.7, hemoglobin 12.5, and platelets 781,000. Basic metabolic profile is otherwise unremarkable. His sodium is trending down to 145. Magnesium and phosphorous fall within the normal limits. ASSESSMENT: 1. Acute hypoxic respiratory failure, resolved. 2. Systemic inflammatory response syndrome, on empiric meropenem/Linezolid. 3. Healthcare-associated pneumonia, status post full course of antibiotic previously. 4. Pulseless electrical activity, status post return of circulation. 5. Hemorrhagic shock, resolved. 6. Acute blood loss anemia, stable. 7. Anoxic brain injury, slowly recovering. DISCUSSION AND PLAN: We will continue our mobilization efforts through time. We will continue working with the swallow. Once he is safe to take a diet, I will be able to back off our tube feeds. In the meantime, however, we can put him on intermittent bolus feeds. We are weaning away his fentanyl, Klonopin, and Seroquel. That being said, we will continue these for the time being. Pulmonary Critical Care will continue to follow along so long as the patient remains inhouse. From my perspective, he will be a candidate for decannulation shortly, but we can further downsize him particularly if he is having a difficult time swallowing. Job ID: [id number]
[2018-09-22 15:00] LABS: Anion Gap 14 mmol/L (10-20); BUN (Urea Nitrogen) 19 mg/dL (8.9-20.6); Calc. Creatinine Clearance 126 mL/min (70-130); Calcium 9.3 mg/dL (7.8-10.44); Carbon Dioxide 23 mmol/L (22-29); Chloride 109 mmol/L (98-107); Estimated GFR-MDRD Greater than 90; Glucose 129 mg/dL (70-105); Potassium 3.5 mmol/L (3.5-5.1); Sodium 142 mmol/L (136-145)
[2018-09-22] MEDS: Famotidine 20 MG TAB PO SCH (21:14)
[2018-09-22] MEDS: clonazePAM 0.5 MG TAB PO SCH (21:14)
[2018-09-23] MEDS: Meropenem 2 GM in Sodium Chloride 0.9% 100 ML IVPB SCH ×3 (00:36→17:53)
[2018-09-23] MEDS: Aspirin 325 MG TAB PO SCH (08:17)
[2018-09-23] MEDS: Linezolid 600 MG TAB PO SCH ×2 (08:17→20:20)
[2018-09-23] MEDS: Polyethylene Glycol 3350 17 GM Packet PER TUBE SCH (08:17)
[2018-09-23] MEDS: Tamsulosin HCl 0.4 MG CAP PO SCH (08:17)
[2018-09-23] MEDS: Famotidine 20 MG TAB PO SCH ×2 (08:18→20:19)
[2018-09-23] MEDS: Senokot S 8.6-50 MG TAB PO SCH ×2 (08:18→20:20)
[2018-09-23] MEDS: Heparin 5,000 UNITS/ML VIAL SC SCH ×3 (08:18→20:20)
[2018-09-23] MEDS ORDERED: Pancrelipase DR 12000 1 CAP PER TUBE PRN (09:45)
[2018-09-23] MEDS ORDERED: Sodium Bicarbonate Tab 325 MG TAB PER TUBE PRN (09:46)
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
[2018-09-23] MEDS: clonazePAM 0.5 MG TAB PO SCH (20:20)
[2018-09-24] MEDS: Meropenem 2 GM in Sodium Chloride 0.9% 100 ML IVPB SCH ×3 (01:05→17:45)
[2018-09-24] MEDS: Linezolid 600 MG TAB PO SCH ×2 (08:29→21:27)
[2018-09-24] MEDS: Heparin 5,000 UNITS/ML VIAL SC SCH ×3 (08:30→21:26)
[2018-09-24] MEDS: Aspirin 325 MG TAB PO SCH (08:30)
[2018-09-24] MEDS: Famotidine 20 MG TAB PO SCH ×2 (08:30→21:27)
[2018-09-24] MEDS: Senokot S 8.6-50 MG TAB PO SCH (08:30)
[2018-09-24] MEDS: Tamsulosin HCl 0.4 MG CAP PO SCH (08:30)
[2018-09-24] MEDS: Polyethylene Glycol 3350 17 GM Packet PER TUBE SCH (08:30)
--- NOTE | 2018-09-24 15:21 | PRG ---
DATE OF SERVICE: 09/24/2018 SERVICE: Pulmonary Medicine. INTERVAL HISTORY: The patient is doing fine from a respiratory standpoint. Breathing comfortably. There has been no interval change to his condition. Ultimately, his mentation improves on a day-by-day basis. Today, he actually walked with physical therapy and demonstrated absolutely fantastic strength. PHYSICAL EXAMINATION: VITAL SIGNS: Afebrile, pulse 114, blood pressure 93/65, respirations 16, and saturation 95% on room air. GENERAL: The patient is awake and alert, in no apparent distress. LUNGS: Excellent air entry. No prolonged expiratory phase or wheezing is appreciated. HEART: Normal rate, regular. ABDOMEN: Soft, nontender, and nondistended. Bowel sounds are positive. MUSCULOSKELETAL: No cyanosis or clubbing. No pitting in bilateral lower extremities. NEUROLOGIC: Grossly nonfocal. LABORATORY DATA: WBC 17.7, hemoglobin 12.5, and platelets 871,000, continuing to settle down. Basic metabolic profile was previously unremarkable. ASSESSMENT: 1. Acute hypoxic respiratory failure, resolved. 2. Healthcare-associated pneumonia, previously status post full course of antibiotic. 3. Recrudescence in sepsis, on empiric meropenem/linezolid. 4. Pulseless electrical activity, status post return of circulation. 5. Hemorrhagic shock, resolved. 6. Acute blood loss anemia, stable. 7. Anoxic brain injury, slowly recovering. DISCUSSION AND PLAN: The patient will remain on the empiric antibiotics for a total duration of 10 days. At that point, we will discontinue one. Our biggest concern is that the patch that was used to stabilize the myocardium could be secondarily infected. I will discontinue the Seroquel and Klonopin. He has been decannulated, which is perfectly reasonable. Pulmonary will continue to follow while the patient remains in-house, intermittently. If he gets in trouble over the weekend, please give me a phone call. At this point, my plan is to see him on Thursday. In 6 weeks in the outpatient setting, he should have a chest x-ray to establish a new baseline for him. Job ID: [id number]
[2018-09-24] MEDS: Ondansetron PF 4 MG/2 ML Vial IVP PRN (18:30)
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
[2018-09-25] MEDS: Meropenem 2 GM in Sodium Chloride 0.9% 100 ML IVPB SCH ×3 (01:28→17:20)
[2018-09-25] MEDS: Ibuprofen 100 MG/5 ML UDCUP PO PRN (02:05)
[2018-09-25] MEDS: Acetaminophen 650 MG/20.3 ML UDCUP PO PRN (02:49)
[2018-09-25] MEDS: Ondansetron PF 4 MG/2 ML Vial IVP PRN (02:49)
[2018-09-25 06:46] LABS: #Basophils 0.1 thou/uL (0.0-0.2); #Eosinphils 0.4 thou/uL (0.0-0.7); #Lymphocytes 3.4 thou/uL (1.20-3.40); #Monocytes 1.6 thou/uL (0.11-0.59); #Neutrophils 9.5 thou/uL (1.40-6.50); %Basophils 0.7 % (0.0-1.0); %Lymphocytes 22.6 % (21.0-51.0); %Monocytes 10.7 % (0.0-10.0); Hemoglobin 12.2 g/dL (14.0-18.0); Mean Corpuscular HGB CONC 32.3 g/dL (32.0-36.0); Mean Corpuscular Hemoglobin 30.1 pg (27.0-31.0); Mean Corpuscular Volume 92.9 fL (78.0-98.0); Mean Platelet Volume 8.5 fL (7.4-10.4); Platelet Count 707 thou/uL (130-400); RBC Distribution Width 15.4 % (11.5-14.5); Red Blood Cell (RBC) Count 4.07 mill/uL (4.70-6.10)
[2018-09-25 07:05] LABS: Anion Gap 13 mmol/L (10-20); BUN (Urea Nitrogen) 14 mg/dL (8.9-20.6); Calc. Creatinine Clearance 120 mL/min (70-130); Calcium 9.2 mg/dL (7.8-10.44); Carbon Dioxide 26 mmol/L (22-29); Chloride 101 mmol/L (98-107); Estimated GFR-MDRD Greater than 90; Glucose 96 mg/dL (70-105); Magnesium 1.7 mg/dL (1.6-2.6); Phosphorus 4.1 mg/dL (2.3-4.7); Potassium 3.5 mmol/L (3.5-5.1); Sodium 136 mmol/L (136-145)
[2018-09-25] MEDS: Polyethylene Glycol 3350 17 GM Packet PER TUBE SCH ×2 (08:25→08:35)
[2018-09-25] MEDS: Famotidine 20 MG TAB PO SCH ×3 (08:25→21:00)
[2018-09-25] MEDS: Docusate 100 MG CAP PO SCH ×2 (08:25→08:35)
[2018-09-25] MEDS: Tamsulosin HCl 0.4 MG CAP PO SCH (08:25)
[2018-09-25] MEDS: Linezolid 600 MG TAB PO SCH ×2 (08:25→21:00)
[2018-09-25] MEDS: Heparin 5,000 UNITS/ML VIAL SC SCH ×3 (08:25→21:00)
[2018-09-25] MEDS: Aspirin 325 MG TAB PO SCH (08:25)
--- NOTE | 2018-09-25 11:01 | RAD ---
PORTABLE AP CHEST XRAY: DATE: 09/25/2018. HISTORY: Followup evaluation. COMPARISON: 09/14/2018. FINDINGS: The tracheostomy device has been removed. Pleural and parenchymal changes at the left lung base and left mid lung zone have improved with improved aeration on the left. There are linear densities pres ent within the left upper lung zone and left lung base likely related to residual atelectasis and/or mild scarring. Probable persistent small left pleural effusion and atelectasis. Linear densities in the right mid and upper lung zones may be related to scarring or atelectasis. Cardiac silhouette is magnified by projection but does appear enlarged. IMPRESSION: 1. Improvement in aeration at the left lung base, but there is a small left pleural effusion with pr obable atelectasis at the left lung base; although, pneumonia at left lung base could not be entirely excluded. 2. Scattered linear densities bilaterally probably related to areas of atelectasis. POS: [facility]
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
[2018-09-26] MEDS: Meropenem 2 GM in Sodium Chloride 0.9% 100 ML IVPB SCH ×3 (00:48→16:26)
[2018-09-26] MEDS: Linezolid 600 MG TAB PO SCH ×2 (08:20→20:05)
[2018-09-26] MEDS: Aspirin 325 MG TAB PO SCH (08:20)
[2018-09-26] MEDS: Famotidine 20 MG TAB PO SCH ×2 (08:21→20:05)
[2018-09-26] MEDS: Tamsulosin HCl 0.4 MG CAP PO SCH (08:21)
[2018-09-26] MEDS: Heparin 5,000 UNITS/ML VIAL SC SCH ×3 (08:23→20:06)
[2018-09-26] MEDS: Docusate 100 MG CAP PO SCH (08:27)
[2018-09-26] MEDS: Polyethylene Glycol 3350 17 GM Packet PER TUBE SCH (08:27)
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
--- NOTE | 2018-09-26 19:42 | PRG ---
DATE OF SERVICE: 09/26/2018 SERVICE: Pulmonary Medicine. INTERVAL HISTORY: The patient is doing fine from respiratory standpoint. He is breathing comfortably. There has been no interval change to his condition. He is actually asking when he can go home. He is eating, and walking. He has no respiratory discomfort or cough. PHYSICAL EXAMINATION: VITAL SIGNS: Afebrile, pulse 126, blood pressure 98/64, respirations 20, and saturation 93% on room air. GENERAL: The patient is awake and alert, in no apparent distress. LUNGS: Decent air entry. There is no prolonged expiratory phase. Rhonchi are present, but clear with cough. HEART: Normal rate, regular. ABDOMEN: Soft, nontender, and nondistended. Bowel sounds are positive. MUSCULOSKELETAL: No cyanosis or clubbing. No pitting in the bilateral lower extremities. NEUROLOGIC: Grossly nonfocal. IMAGING: Chest x-ray demonstrates improvement in aeration in the left lung base. Small left pleural effusion is noted. Cardiac silhouette is quite enlarged on this portable film. ASSESSMENT: 1. Acute hypoxic respiratory failure, resolved. 2. Healthcare-associated pneumonia, status post full course of antibiotic. Recurrent sepsis, on empiric meropenem/linezolid. 3. Pulseless electrical activity, status post return of circulation. 4. Hemorrhagic shock, resolved. 5. Acute blood loss anemia, stable. 6. Anoxic brain injury, recovering. DISCUSSION AND PLAN: The patient is doing really well from respiratory standpoint. At this point, he has no further requirements for inpatient Pulmonary Critical Care opinion. I will follow, intermittently during the hospital stay. Please call if there is any questions or concerns through time. Of note, he has completed a 10-day course of meropenem and linezolid. We will watch very closely for increasing signs of sepsis. Job ID: [id number]
[2018-09-27] MEDS: Acetaminophen 650 MG/20.3 ML UDCUP PO PRN (02:07)
[2018-09-27 08:12] VITALS: BMI 24.5
[2018-09-27] MEDS: Linezolid 600 MG TAB PO SCH ×2 (09:07→20:55)
[2018-09-27] MEDS: Polyethylene Glycol 3350 17 GM Packet PER TUBE SCH (09:07)
[2018-09-27] MEDS: Famotidine 20 MG TAB PO SCH ×2 (09:07→20:55)
[2018-09-27] MEDS: Aspirin 325 MG TAB PO SCH (09:07)
[2018-09-27] MEDS: Tamsulosin HCl 0.4 MG CAP PO SCH (09:07)
[2018-09-27] MEDS: Docusate 100 MG CAP PO SCH (09:07)
[2018-09-27] MEDS: Heparin 5,000 UNITS/ML VIAL SC SCH ×3 (09:07→20:56)
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
[2018-09-28] MEDS: Aspirin 325 MG TAB PO SCH (09:47)
[2018-09-28] MEDS: Polyethylene Glycol 3350 17 GM Packet PER TUBE SCH (09:47)
[2018-09-28] MEDS: Famotidine 20 MG TAB PO SCH ×2 (09:48→21:52)
[2018-09-28] MEDS: Heparin 5,000 UNITS/ML VIAL SC SCH ×3 (09:48→21:51)
[2018-09-28] MEDS: Docusate 100 MG CAP PO SCH (09:48)
[2018-09-28] MEDS: Tamsulosin HCl 0.4 MG CAP PO SCH (09:48)
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
[2018-09-29] MEDS: Polyethylene Glycol 3350 17 GM Packet PER TUBE SCH (08:57)
[2018-09-29] MEDS: Famotidine 20 MG TAB PO SCH (08:57)
[2018-09-29] MEDS: Aspirin 325 MG TAB PO SCH (08:58)
[2018-09-29] MEDS: Tamsulosin HCl 0.4 MG CAP PO SCH (08:58)
[2018-09-29] MEDS: Heparin 5,000 UNITS/ML VIAL SC SCH (09:08)
[2018-09-29] MEDS: Docusate 100 MG CAP PO SCH (09:08)
[2018-09-29] MEDS ORDERED: Acetaminophen 650 MG/20.3 ML UDCUP PO PRN (10:19)
[2018-09-29 12:04] VITALS: BP 103/69; TEMP 97.4
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
== END 2018-09-29 13:27 | disposition home or self-care (01) | DRG 3 ==
LOC: EDBD 07:18 → ERS 07:18 → CCU 08:08 → SDC 08:08 → CCU 10:16 → EEVIPCON 10:16 → IMCU/EMU 09-19 18:47 → SURG B 09-22 15:28
PROVIDERS: ADMIT Surgery; ATTEND Surgery
PROC: 02QC0ZZ Repair Left Heart, Open Approach (ICD-10-PCS; principal; 2018-08-30)
PROC: 0W3D0ZZ Control Bleeding in Pericardial Cavity, Open Approach (ICD-10-PCS; 2018-08-30)
PROC: 5A12012 Performance of Cardiac Output, Single, Manual (ICD-10-PCS; 2018-08-30)
PROC: 0W9B30Z Drainage of Left Pleural Cavity with Drainage Device, Percutaneous Approach (ICD-10-PCS; 2018-08-30)
PROC: 0W9930Z Drainage of Right Pleural Cavity with Drainage Device, Percutaneous Approach (ICD-10-PCS; 2018-08-30)
PROC: 30243L1 Transfusion of Nonautologous Fresh Plasma into Central Vein, Percutaneous Approach (ICD-10-PCS; 2018-08-30)
PROC: 30243N1 Transfusion of Nonautologous Red Blood Cells into Central Vein, Percutaneous Approach (ICD-10-PCS; 2018-08-30)
PROC: 30243R1 Transfusion of Nonautologous Platelets into Central Vein, Percutaneous Approach (ICD-10-PCS; 2018-08-30)
PROC: 3E043XZ Introduction of Vasopressor into Central Vein, Percutaneous Approach (ICD-10-PCS; 2018-08-30)
PROC: 0W9G3ZX Drainage of Peritoneal Cavity, Percutaneous Approach, Diagnostic (ICD-10-PCS; 2018-08-30)
PROC: 5A1955Z Respiratory Ventilation, Greater than 96 Consecutive Hours (ICD-10-PCS; 2018-08-30)
PROC: 0BH17EZ Insertion of Endotracheal Airway into Trachea, Via Natural or Artificial Opening (ICD-10-PCS; 2018-08-30)
PROC: 07TP0ZZ Resection of Spleen, Open Approach (ICD-10-PCS; 2018-08-30)
PROC: 0DQ60ZZ Repair Stomach, Open Approach (ICD-10-PCS; 2018-08-30)
PROC: 0FQ20ZZ Repair Left Lobe Liver, Open Approach (ICD-10-PCS; 2018-08-30)
PROC: 04HY32Z Insertion of Monitoring Device into Lower Artery, Percutaneous Approach (ICD-10-PCS; 2018-08-30)
PROC: 2W13X6Z Compression of Abdominal Wall using Pressure Dressing (ICD-10-PCS; 2018-08-30)
PROC: 0WJG0ZZ Inspection of Peritoneal Cavity, Open Approach (ICD-10-PCS; 2018-09-01)
PROC: 02HV33Z Insertion of Infusion Device into Superior Vena Cava, Percutaneous Approach (ICD-10-PCS; 2018-09-01)
PROC: 0WQFXZZ Repair Abdominal Wall, External Approach (ICD-10-PCS; 2018-09-03)
PROC: 0B113F4 Bypass Trachea to Cutaneous with Tracheostomy Device, Percutaneous Approach (ICD-10-PCS; 2018-09-06)
PROC: 0WQFXZZ Repair Abdominal Wall, External Approach (ICD-10-PCS; 2018-09-06)
PROC: 0DH63UZ Insertion of Feeding Device into Stomach, Percutaneous Approach (ICD-10-PCS; 2018-09-06)
PROC: 0B9L8ZZ Drainage of Left Lung, Via Natural or Artificial Opening Endoscopic (ICD-10-PCS; 2018-09-06)
DX: S00-T88 Injury, poisoning and certain other consequences of external causes (principal); J96.01 Acute respiratory failure with hypoxia; S27.1XXA Traumatic hemothorax, initial encounter; I46.9 Cardiac arrest, cause unspecified; T79.4XXA Traumatic shock, initial encounter; S36.032A Major laceration of spleen, initial encounter; D65 Disseminated intravascular coagulation [defibrination syndrome]; G93.41 Metabolic encephalopathy; K65.9 Peritonitis, unspecified; R65.20 Severe sepsis without septic shock; J15.6 Pneumonia due to other Gram-negative bacteria; A41.9 Sepsis, unspecified organism; K72.00 Acute and subacute hepatic failure without coma; S36.33XA Laceration of stomach, initial encounter; G93.1 Anoxic brain damage, not elsewhere classified; D62 Acute posthemorrhagic anemia; S36.113A Laceration of liver, unspecified degree, initial encounter; S27.321A Contusion of lung, unilateral, initial encounter; N17.9 Acute kidney failure, unspecified; E46 Unspecified protein-calorie malnutrition; E87.0 Hyperosmolality and hypernatremia; E87.2 Acidosis; E87.6 Hypokalemia; E83.39 Other disorders of phosphorus metabolism; R73.9 Hyperglycemia, unspecified; X95.9XXA Assault by unspecified firearm discharge, initial encounter; Y92.524 Gas station as the place of occurrence of the external cause; Y99.0 Civilian activity done for income or pay; Y95 Nosocomial condition; R33.9 Retention of urine, unspecified; Z23 Encounter for immunization
CPT/HCPCS: 31500; 32551; 36415; 36416; 36430; 36556; 70450; 71045; 71250; 74018; 74022; 74177; 76770; 77012; 80048; 80053; 80076; 80202; 81003; 81015; 82150; 82533; 82805; 82945; 83605; 83615; 83735; 83880; 84100; 84134; 84157; 85025; 85049; 85060; 85300; 85362; 85379; 85384; 85610; 85730; 86140; 86850; 86900; 86901; 87040; 87070; 87077; 87086; 87116; 87186; 87205; 87206; 87324; 87449; 88112; 88305; 89051; 90471; 90648; 90670; 90733; 92950; 93970; 94002; 94003; 94640; 96374; 96375; 96376; G0009; G0390; G8978-GP-CM; G8978-GP-CN; G8979-GP-CK; G8987-GO-CN; G8988-GO-CM; G9159-GN-CM; G9159-GN-CN; G9160-GN-CI; G9160-GN-CM; J0131; J0153; J0171; J0670; J1265; J1450; J1644; J1720; J1815; J1940; J1956; J2060; J2185; J2250; J2270; J2370; J2405; J2543; J2597; J2704; J3010; J3370; J3475; J3480; J7050; J7070; J7620; J7626; P9012; P9016; P9035; P9045; P9047; P9048; P9059; Q0162; S0028

== ENCOUNTER 2018-10-12 13:52 | Outpatient (CLI) | payer OTHER, SELFPAY ==
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
== END 2018-10-12 13:53 | disposition home or self-care (01) ==
LOC: RAD 13:52
PROVIDERS: ATTEND Physician Assistant
DX: T14.8XXA Other injury of unspecified body region, initial encounter (principal)
CPT/HCPCS: 71046

== ENCOUNTER 2018-11-04 13:07 | Outpatient (CLI) | payer OTHER ==
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
== END 2018-11-04 13:08 | disposition home or self-care (01) ==
LOC: RAD 13:07
PROVIDERS: ATTEND Nurse Practitioner Acute Care
DX: S21.131D Puncture wound without foreign body of right front wall of thorax without penetration into thoracic cavity, subsequent encounter (principal); J98.4 Other disorders of lung
CPT/HCPCS: 71046

== ENCOUNTER 2018-12-24 12:18 | Emergency (ER) | payer OTHER, SELFPAY ==
[2018-12-24 13:16] LABS: Hemoglobin 14.5 g/dL (14.0-18.0); Mean Corpuscular HGB CONC 32.4 g/dL (32.0-36.0); Mean Corpuscular Volume 92.8 fL (78.0-98.0); Mean Platelet Volume 8.2 fL (7.4-10.4); Platelet Count 420 thou/uL (130-400); RBC Distribution Width 14.1 % (11.5-14.5); Red Blood Cell (RBC) Count 4.84 mill/uL (4.70-6.10); White Blood Cell (WBC) Count 13.1 thou/uL (4.8-10.8)
--- NOTE | 2018-12-24 13:19 | RAD ---
CHEST 1 VIEW: HISTORY: Chest pain which began 3 days ago but getting worse. COMPARISON: 11/04/2018. FINDINGS: Heart size is within normal limits. Minimal stable pleural and parenchymal opacity changes in the le ft base with some blunting of the left costophrenic angle. No new process. IMPRESSION: Stable pleural and parenchymal opacity changes in the left base with some costophrenic angle blunting . POS: [facility]
[2018-12-24 13:37] LABS: ALT (SGPT) 96 U/L (8-55); AST (SGOT) 53 U/L (5-34); Albumin 4.5 g/dL (3.5-5.0); Alkaline Phosphatase 104 U/L (40-150); Anion Gap 13 mmol/L (10-20); BUN (Urea Nitrogen) 7 mg/dL (8.9-20.6); Bilirubin, Total 0.5 mg/dL (0.2-1.2); Calc. Creatinine Clearance 0 mL/min (70-130); Calcium 9.9 mg/dL (7.8-10.44); Carbon Dioxide 27 mmol/L (22-29); Chloride 104 mmol/L (98-107); Estimated GFR-MDRD Greater than 90; Globulin 3.8 g/dL (2.4-3.5); Glucose 95 mg/dL (70-105); Lipase 30 U/L (8-78); Potassium 4.5 mmol/L (3.5-5.1); Protein, Total 8.3 g/dL (6.0-8.3); Sodium 139 mmol/L (136-145)
[2018-12-24 13:54] LABS: Anisocytosis SLIGHT = 6-15 cells (100X) (0-5/hpf); Band 2 % (5-11); Eosinophils 1 % (0-10); Lymphocytes 29 % (21-51); MDiff Complete? YES; Monocytes 9 % (0-10); Neutrophil 59 % (42-75); Platelet Morphology Comment Appears Increased
== END 2018-12-24 13:55 | disposition home or self-care (01) ==
LOC: ERS 12:18
DX: R07.9 Chest pain, unspecified (principal); F17.210 Nicotine dependence, cigarettes, uncomplicated
CPT/HCPCS: 36415; 71045; 80053; 83690; 84484; 85025; 93005

== ENCOUNTER 2018-12-29 16:00 | Outpatient (CLI) | payer OTHER, SELFPAY ==
[~2018-12-29 16:00] MED LIST: Iopamidol 370 76% 100 ML VIAL ONE
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
== END 2018-12-29 16:01 | disposition home or self-care (01) ==
LOC: CT 16:00
PROVIDERS: ATTEND Surgery
DX: S21.3 Open wound of front wall of thorax with penetration into thoracic cavity (principal); W34.00XD Accidental discharge from unspecified firearms or gun, subsequent encounter
CPT/HCPCS: 71260; Q9967